=== PATIENT | male | born 1975 | race Caucasian/White ===

== ENCOUNTER 2016-09-29 16:00 | Outpatient (RCR) | payer MEDICAID ==
[~2016-09-29 16:00] MED LIST: ALEV220C2 PO; ATIV1TAB10 PO; MORP-39 PO; NORCOBULK PO; PANT40TA2 PO; motrin PO
== END 2016-10-10 ==
LOC: M OUTALCOH 16:00
PROVIDERS: ATTEND Psychiatry & Neurology Psychiatry
DX: F11.20 Opioid dependence, uncomplicated (principal)

== ENCOUNTER 2016-10-28 12:58 | Emergency (ER) | payer MEDICAID, OTHER ==
--- NOTE | 2016-10-28 14:52 | EDDOCDS ---
Physician Documentation [facility] Name: Ilan Coffman Age: 41 yrs Sex: Male : 1975 Arrival Date: 10/28/2016 Time: 12:58 Bed TR7 Private MD: Ron Manzano NCFM Disposition: 10/28/16 14:45 Discharged to Home/Self Care. Impression: Other acute postprocedural pain, Fusion of spine, lumbar region. - Condition is Stable. - Discharge Instructions: Musculoskeletal Pain, Lumbar Diskectomy, Care After. - Prescriptions for Percocet 5- 325 mg Oral Tablet - take 1 tablet by ORAL route every 6 hours As needed MDD: 4 tabs; 20 tablet. etodolac 200 mg Oral Capsule - take 1 capsule by ORAL route 3 times per day; 30 capsule. - Medication Reconciliation, Local Pharmacy Hours form. - Follow up: [facility] - office; When: Call to arrange an appointment; Reason: Further diagnostic work-up, Recheck today's complaints, Continuance of care. - Problem is an ongoing problem. - Symptoms are unchanged. Historical: - Allergies: no known allergies; - Home Meds: 1. Percocet 5-325 mg Oral tab 1 tab every 4 hours 1-2 tabs (Last dose: 10/28/2016 05:00) 2. Motrin 800 mg Oral tab twice a day (Last dose: 10/28/2016 05:00) 3. Aleve 220 mg Oral tab 2 tab every 12 hours (Last dose: 10/28/2016 05:00) 4. bupropion HCl 100 mg Oral tab 1 tab daily (Last dose: 10/28/2016 05:00) 5. cephalexin 500 mg Oral tab 1 tab every 6 hours - PMHx: Anxiety; - PSHx: Knee surgery- Left; back surgery; - Social history: Smoking status: Patient states was never smoker of tobacco. No barriers to communication noted, The patient speaks fluent Swedish, Speaks appropriately for age. - Family history: Not pertinent. - : The pt / caregiver states he / she is not on anticoagulants. Home medication list is obtained from the patient. - Exposure Risk Screening:: None identified. Vital Signs: 10/28 13:00 BP 142 / 83; Pulse 94; Resp 18 S; Temp 98.2(O); Pulse Ox 99% on R/A; Weight 90.72 kg / gr2 200 lbs (R); Height 5 ft. 11 in. (180.34 cm) (R); Pain 03/19; 13:00 Body Mass Index 27.89 (90.72 kg, 180.34 cm) gr2 MDM: 14:15 Financial registration complete. 14:36 [facility] Payment Agreement was scanned into [employer] and attached to record. Signatures: Valeria Alarcon, Reg Reg lg Titi Weston PA PA btw Fuller, Desiree,RN RN dsf The chart was reviewed and I authenticate all verbal orders and agree with the evaluation and treatment provided.Attachments: 14:36 [facility] Payment Agreement lg MTDD
--- NOTE | 2016-10-28 14:52 | EDDOCDS ---
Nurse's Notes [facility] Name: Ilan Coffman Age: 41 yrs Sex: Male : 1975 Arrival Date: 10/28/2016 Time: 12:58 Bed TR7 Private MD: Ron Manzano NCFM Diagnosis: Other acute postprocedural pain;Fusion of spine, lumbar region Presentation: 10/28 13:03 Presenting complaint: Patient states: Oct 13 had a spinal fusion done at [facility]. Pt states he ran out of his pain medication and the did not phone in another script in for him in time. Acute neurological deficits are not present. Mechanism of Injury: No Mechanism of Injury. Adult Sepsis Screening: The patient does not have new or worsening altered mentation. Patient's respiratory rate is less than 22. Systolic blood pressure is greater than 100. Patient has a qSOFA score of 0- Negative Sepsis Screen. Suicide/Homicide risk assessment- the patient denies having any suicidal and/or homicidal ideations and does not present with any other emotional, behavioral or mental health complaints. Status: Patient is not a manager support services or dependent. Transition of care: patient was not received from another setting of care. 13:03 Acuity: JOSE LUIS Level 5 dsf 13:03 Method Of Arrival: Walkin/Carried/Asstd f Triage Assessment: 13:03 General: Appears in no apparent distress, Behavior is appropriate for age, cooperative. dsf Pain: Location: low back Pain currently is 7 out of 10 on a pain scale. Quality of pain is described as sharp, shooting. HIV screening NA for this visit Offered previously. Musculoskeletal: Reports pain in low back. Historical: - Allergies: no known allergies; - Home Meds: 1. Percocet 5-325 mg Oral tab 1 tab every 4 hours 1-2 tabs (Last dose: 10/28/2016 05:00) 2. Motrin 800 mg Oral tab twice a day (Last dose: 10/28/2016 05:00) 3. Aleve 220 mg Oral tab 2 tab every 12 hours (Last dose: 10/28/2016 05:00) 4. bupropion HCl 100 mg Oral tab 1 tab daily (Last dose: 10/28/2016 05:00) 5. cephalexin 500 mg Oral tab 1 tab every 6 hours - PMHx: Anxiety; - PSHx: Knee surgery- Left; back surgery; - Social history: Smoking status: Patient states was never smoker of tobacco. No barriers to communication noted, The patient speaks fluent Maori, Speaks appropriately for age. - Family history: Not pertinent. - : The pt / caregiver states he / she is not on anticoagulants. Home medication list is obtained from the patient. - Exposure Risk Screening:: None identified. Screenin:49 Screening information is obtained from the patient. Fall risk: No risks identified. dsf Assistance ADL's: requires no assistance with activities of daily living. Abuse/DV Screen: The patient / caregiver reports he/she is: not in a situation that causes fear, pain or injury. Nutritional screening: No deficits noted. Advance Directives: Currently, there is no health care proxy. home support is adequate. Assessment: 14:49 Adult Sepsis Screening: The patient does not have new or worsening altered mentation. dsf Patient's respiratory rate is less than 22. Systolic blood pressure is greater than 100. Patient has a qSOFA score of 0- Negative Sepsis Screen. General: Appears in no apparent distress, Behavior is appropriate for age, cooperative. Pain: Location: back. Neurological: Level of Consciousness is awake, alert. Cardiovascular: Capillary refill < 3 seconds. Respiratory: Airway is patent Respiratory effort is even, unlabored, Respiratory pattern is regular, symmetrical. Derm: Skin is pink, warm & dry. Vital Signs: 13:00 BP 142 / 83; Pulse 94; Resp 18 S; Temp 98.2(O); Pulse Ox 99% on R/A; Weight 90.72 kg gr2 (R); Height 5 ft. 11 in. (180.34 cm) (R); Pain 7/10; 13:00 Body Mass Index 27.89 (90.72 kg, 180.34 cm) gr2 Vitals: 13:00 Log In Time: October 28, 2016 at 13:00. gr2 ED Course: 13:00 Patient visited by Vaishnavi Wolfe. gr2 13:00 Ron Manzano is Private Physician. gr2 13:00 Patient moved to Waiting gr2 13:01 Patient visited by Vaishnavi Wolfe. gr2 13:01 Patient moved to Pre RCE gr2 13:05 Triage Initiated dsf 13:22 Patient moved to Triage 1 ct3 13:24 Patient moved to Pre RCE kr3 14:02 Patient moved to Triage 1 ct3 14:12 Titi Weston PA is PHCP. btw 14:12 Danelle Zavala MD is Attending Physician. btw 14:12 Patient visited by Titi Weston PA. btw 14:35 Patient name changed from Luke\S\J\S\Kampnich\S\ to Luke\S\Maycol\S\Kampnich. EDMS 14:36 [facility] Payment Agreement was scanned into [employer] and attached to record. 14:45 [facility] - office is Referral Physician. btw 14:49 Patient moved to TR7 ct3 14:49 The patient / caregiver is instructed regarding the plan of care and ED course. dsf 14:49 No IV's were initiated during this patient's visit. No procedures done that require dsf assistance. Order Results: There are currently no results for this order. Outcome: 14:45 Discharge ordered by Provider. btw 14:49 Discharge Assessment: Patient awake, alert and oriented x 3. No cognitive and/or dsf functional deficits noted. Patient verbalized understanding of disposition instructions. patient administered narcotics - no. The following High Risk Discharge criteria are identified: None. Discharged to home ambulatory. Condition: stable. Discharge instructions given to patient, Instructed on discharge instructions, follow up and referral plans. medication usage, no driving heavy equipment, Demonstrated understanding of instructions, medications, Pt was receptive of discharge instructions/ teaching. Prescriptions given X 2. No special radiology studies were completed. Property sent home with patient. 14:51 Patient left the ED. dsf Signatures: [facility] Valeria Alarcon, Reg Reg lg Xuan Richardson,ESTEVAN RN kr3 Titi Weston PA PA btw Shantal Joshua, CONTROLS DESIGN ENGINEER CONTROLS DESIGN ENGINEER ct3 Diana Martinez RN RN dsf Vaishnavi Wolfe gr2 MTDD
--- NOTE | 2016-10-30 15:51 | EDDOCDS ---
Physician Documentation [facility] Name: Ilan Coffman Age: 41 yrs Sex: Male : 1975 Arrival Date: 10/28/2016 Time: 12:58 Bed TR7 Private MD: Ron Manzano NCFM Disposition: 10/28/16 14:45 Discharged to Home/Self Care. Impression: Other acute postprocedural pain, Fusion of spine, lumbar region. - Condition is Stable. - Discharge Instructions: Musculoskeletal Pain, Lumbar Diskectomy, Care After. - Prescriptions for Percocet 5- 325 mg Oral Tablet - take 1 tablet by ORAL route every 6 hours As needed MDD: 4 tabs; 20 tablet. etodolac 200 mg Oral Capsule - take 1 capsule by ORAL route 3 times per day; 30 capsule. - Medication Reconciliation, Local Pharmacy Hours form. - Follow up: [facility] - office; When: Call to arrange an appointment; Reason: Further diagnostic work-up, Recheck today's complaints, Continuance of care. - Problem is an ongoing problem. - Symptoms are unchanged. Historical: - Allergies: no known allergies; - Home Meds: 1. Percocet 5-325 mg Oral tab 1 tab every 4 hours 1-2 tabs (Last dose: 10/28/2016 05:00) 2. Motrin 800 mg Oral tab twice a day (Last dose: 10/28/2016 05:00) 3. Aleve 220 mg Oral tab 2 tab every 12 hours (Last dose: 10/28/2016 05:00) 4. bupropion HCl 100 mg Oral tab 1 tab daily (Last dose: 10/28/2016 05:00) 5. cephalexin 500 mg Oral tab 1 tab every 6 hours - PMHx: Anxiety; - PSHx: Knee surgery- Left; back surgery; - Social history: Smoking status: Patient states was never smoker of tobacco. No barriers to communication noted, The patient speaks fluent Mongolian, Speaks appropriately for age. - Family history: Not pertinent. - : The pt / caregiver states he / she is not on anticoagulants. Home medication list is obtained from the patient. - Exposure Risk Screening:: None identified. Vital Signs: 10/28 13:00 BP 142 / 83; Pulse 94; Resp 18 S; Temp 98.2(O); Pulse Ox 99% on R/A; Weight 90.72 kg / gr2 200 lbs (R); Height 5 ft. 11 in. (180.34 cm) (R); Pain 710; 13:00 Body Mass Index 27.89 (90.72 kg, 180.34 cm) gr2 MDM: 14:15 Financial registration complete. lg 14:36 [facility] Payment Agreement was scanned into [employer] and attached to record. lg 18:02 T-Sheet-- Draft Copy was scanned into [employer] and attached to record. klr 10/30 11:05 Other: DRUG UTILIZATION REPORT was scanned into [employer] and attached to record. gb Signatures: Lakshmi Aquino, Reg Reg gb Valeria Alarcon, Reg Reg lg Titi Weston PA PA btw Fuller, DesireeRN RN Alena Bowden The chart was reviewed and I authenticate all verbal orders and agree with the evaluation and treatment provided.Attachments: 10/28 14:36 [facility] Payment Agreement lg 18:02 T-Sheet-- Draft Copy klr Chart Complete MTDD
--- NOTE | 2016-10-30 15:51 | EDDOCDS ---
Nurse's Notes [facility] Name: Ilan Coffman Age: 41 yrs Sex: Male : 1975 Arrival Date: 10/28/2016 Time: 12:58 Bed TR7 Private MD: Ron Manzano NCFM Diagnosis: Other acute postprocedural pain;Fusion of spine, lumbar region Presentation: 10/28 13:03 Presenting complaint: Patient states: Oct 13 had a spinal fusion done at [facility]. Pt states he ran out of his pain medication and the did not phone in another script in for him in time. Acute neurological deficits are not present. Mechanism of Injury: No Mechanism of Injury. Adult Sepsis Screening: The patient does not have new or worsening altered mentation. Patient's respiratory rate is less than 22. Systolic blood pressure is greater than 100. Patient has a qSOFA score of 0- Negative Sepsis Screen. Suicide/Homicide risk assessment- the patient denies having any suicidal and/or homicidal ideations and does not present with any other emotional, behavioral or mental health complaints. Status: Patient is not a ancillary services manager or dependent. Transition of care: patient was not received from another setting of care. 13:03 Acuity: JOSE LUIS Level 5 dsf 13:03 Method Of Arrival: Walkin/Carried/Asstd f Triage Assessment: 13:03 General: Appears in no apparent distress, Behavior is appropriate for age, cooperative. dsf Pain: Location: low back Pain currently is 7 out of 10 on a pain scale. Quality of pain is described as sharp, shooting. HIV screening NA for this visit Offered previously. Musculoskeletal: Reports pain in low back. Historical: - Allergies: no known allergies; - Home Meds: 1. Percocet 5-325 mg Oral tab 1 tab every 4 hours 1-2 tabs (Last dose: 10/28/2016 05:00) 2. Motrin 800 mg Oral tab twice a day (Last dose: 10/28/2016 05:00) 3. Aleve 220 mg Oral tab 2 tab every 12 hours (Last dose: 10/28/2016 05:00) 4. bupropion HCl 100 mg Oral tab 1 tab daily (Last dose: 10/28/2016 05:00) 5. cephalexin 500 mg Oral tab 1 tab every 6 hours - PMHx: Anxiety; - PSHx: Knee surgery- Left; back surgery; - Social history: Smoking status: Patient states was never smoker of tobacco. No barriers to communication noted, The patient speaks fluent Turkmen, Speaks appropriately for age. - Family history: Not pertinent. - : The pt / caregiver states he / she is not on anticoagulants. Home medication list is obtained from the patient. - Exposure Risk Screening:: None identified. Screenin:49 Screening information is obtained from the patient. Fall risk: No risks identified. dsf Assistance ADL's: requires no assistance with activities of daily living. Abuse/DV Screen: The patient / caregiver reports he/she is: not in a situation that causes fear, pain or injury. Nutritional screening: No deficits noted. Advance Directives: Currently, there is no health care proxy. home support is adequate. Assessment: 14:49 Adult Sepsis Screening: The patient does not have new or worsening altered mentation. dsf Patient's respiratory rate is less than 22. Systolic blood pressure is greater than 100. Patient has a qSOFA score of 0- Negative Sepsis Screen. General: Appears in no apparent distress, Behavior is appropriate for age, cooperative. Pain: Location: back. Neurological: Level of Consciousness is awake, alert. Cardiovascular: Capillary refill < 3 seconds. Respiratory: Airway is patent Respiratory effort is even, unlabored, Respiratory pattern is regular, symmetrical. Derm: Skin is pink, warm & dry. Vital Signs: 13:00 BP 142 / 83; Pulse 94; Resp 18 S; Temp 98.2(O); Pulse Ox 99% on R/A; Weight 90.72 kg gr2 (R); Height 5 ft. 11 in. (180.34 cm) (R); Pain 7/10; 13:00 Body Mass Index 27.89 (90.72 kg, 180.34 cm) gr2 Vitals: 13:00 Log In Time: October 28, 2016 at 13:00. gr2 ED Course: 13:00 Patient visited by Vaishnavi Wolfe. gr2 13:00 Ron Manzano is Private Physician. gr2 13:00 Patient moved to Waiting gr2 13:01 Patient visited by Vaishnavi Wolfe. gr2 13:01 Patient moved to Pre RCE gr2 13:05 Triage Initiated dsf 13:22 Patient moved to Triage 1 ct3 13:24 Patient moved to Pre RCE kr3 14:02 Patient moved to Triage 1 ct3 14:12 Titi Weston PA is PHCP. btw 14:12 Danelle Zavala MD is Attending Physician. btw 14:12 Patient visited by Titi Weston PA. btw 14:35 Patient name changed from Luke\S\J\S\Kampnich\S\ to Luke\S\Maycol\S\Kampnich. EDMS 14:36 [facility] [place] Agreement was scanned into [employer] and attached to record. lg 14:45 [facility] - office is Referral Physician. btw 14:49 Patient moved to TR7 ct3 14:49 The patient / caregiver is instructed regarding the plan of care and ED course. dsf 14:49 No IV's were initiated during this patient's visit. No procedures done that require dsf assistance. 18:02 T-Sheet-- Draft Copy was scanned into [employer] and attached to record. klr 02 11:05 Other: DRUG UTILIZATION REPORT was scanned into [employer] and attached to record. gb Order Results: There are currently no results for this order. Outcome: 0218 14:45 Discharge ordered by Provider. btw 14:49 Discharge Assessment: Patient awake, alert and oriented x 3. No cognitive and/or dsf functional deficits noted. Patient verbalized understanding of disposition instructions. patient administered narcotics - no. The following High Risk Discharge criteria are identified: None. Discharged to home ambulatory. Condition: stable. Discharge instructions given to patient, Instructed on discharge instructions, follow up and referral plans. medication usage, no driving heavy equipment, Demonstrated understanding of instructions, medications, Pt was receptive of discharge instructions/ teaching. Prescriptions given X 2. No special radiology studies were completed. Property sent home with patient. 14:51 Patient left the ED. dsf Signatures: Dispatcher [employer] EDMS Lakshmi Aquino, Reg Reg gb Valeria Alarcon, Reg Reg lg Xuan Richardson RN RN kr3 Titi Weston PA PA btw Joshua, Shantal, SPRAY GUN REPAIRER SPRAY GUN REPAIRER ct3 Diana Martinez RN RN dsf Vaishnavi Wolfe gr2 Alena Lee Chart Complete MTDD
--- NOTE | 2016-10-30 15:51 | EDDOCDS ---
Physician Documentation [facility] Name: Ilan Coffman Age: 41 yrs Sex: Male : 1975 Arrival Date: 10/28/2016 Time: 12:58 Bed TR7 Private MD: Ron Manzano NCFM Disposition: 10/28/16 14:45 Discharged to Home/Self Care. Impression: Other acute postprocedural pain, Fusion of spine, lumbar region. - Condition is Stable. - Discharge Instructions: Musculoskeletal Pain, Lumbar Diskectomy, Care After. - Prescriptions for Percocet 5- 325 mg Oral Tablet - take 1 tablet by ORAL route every 6 hours As needed MDD: 4 tabs; 20 tablet. etodolac 200 mg Oral Capsule - take 1 capsule by ORAL route 3 times per day; 30 capsule. - Medication Reconciliation, Local Pharmacy Hours form. - Follow up: [facility] - office; When: Call to arrange an appointment; Reason: Further diagnostic work-up, Recheck today's complaints, Continuance of care. - Problem is an ongoing problem. - Symptoms are unchanged. Historical: - Allergies: no known allergies; - Home Meds: 1. Percocet 5-325 mg Oral tab 1 tab every 4 hours 1-2 tabs (Last dose: 10/28/2016 05:00) 2. Motrin 800 mg Oral tab twice a day (Last dose: 10/28/2016 05:00) 3. Aleve 220 mg Oral tab 2 tab every 12 hours (Last dose: 10/28/2016 05:00) 4. bupropion HCl 100 mg Oral tab 1 tab daily (Last dose: 10/28/2016 05:00) 5. cephalexin 500 mg Oral tab 1 tab every 6 hours - PMHx: Anxiety; - PSHx: Knee surgery- Left; back surgery; - Social history: Smoking status: Patient states was never smoker of tobacco. No barriers to communication noted, The patient speaks fluent Faroese, Speaks appropriately for age. - Family history: Not pertinent. - : The pt / caregiver states he / she is not on anticoagulants. Home medication list is obtained from the patient. - Exposure Risk Screening:: None identified. Vital Signs: 10/28 13:00 BP 142 / 83; Pulse 94; Resp 18 S; Temp 98.2(O); Pulse Ox 99% on R/A; Weight 90.72 kg / gr2 200 lbs (R); Height 5 ft. 11 in. (180.34 cm) (R); Pain 710; 13:00 Body Mass Index 27.89 (90.72 kg, 180.34 cm) gr2 MDM: 14:15 Financial registration complete. lg 14:36 [facility] Payment Agreement was scanned into [employer] and attached to record. lg 18:02 T-Sheet-- Draft Copy was scanned into [employer] and attached to record. klr 10/30 11:05 Other: DRUG UTILIZATION REPORT was scanned into [employer] and attached to record. gb Signatures: Lakshmi Aquino, Reg Reg gb Valeria Alarcon, Reg Reg lg Titi Weston PA PA btw Fuller, DesireeRN RN Alena Bowden The chart was reviewed and I authenticate all verbal orders and agree with the evaluation and treatment provided.Attachments: 10/28 14:36 [facility] Payment Agreement lg 18:02 T-Sheet-- Draft Copy klr Chart Complete MTDD
== END 2016-10-28 14:51 | disposition home or self-care (01) ==
LOC: M ED 12:58
DX: M54.5 Low back pain (principal); Z98.890 Other specified postprocedural states; Z98.1 Arthrodesis status; F41.9 Anxiety disorder, unspecified; Z79.899 Other long term (current) drug therapy

== ENCOUNTER 2016-11-06 16:00 | Outpatient (RCR) | payer MEDICAID | END 2016-11-07 | LOC: M OUTALCOH 16:00 | PROVIDERS: ATTEND Psychiatry & Neurology Psychiatry | DX: F11.20 Opioid dependence, uncomplicated (principal) ==

== ENCOUNTER 2016-12-06 16:00 | Outpatient (RCR) | payer OTHER | END 2016-12-08 | LOC: M OUTALCOH 16:00 | PROVIDERS: ATTEND Psychiatry & Neurology Psychiatry | DX: F11.20 Opioid dependence, uncomplicated (principal) ==

== ENCOUNTER 2016-12-14 13:13 | Outpatient (RCR) | payer OTHER | END 2017-01-07 | LOC: M OUTALCOH 13:13 | PROVIDERS: ATTEND Psychiatry & Neurology Psychiatry | DX: F11.20 Opioid dependence, uncomplicated (principal) ==

== ENCOUNTER 2017-01-31 08:00 | Outpatient (RCR) | payer MEDICAID | END 2017-02-07 | LOC: M OUTALCOH 08:00 | PROVIDERS: ATTEND Psychiatry & Neurology Psychiatry | DX: F11.20 Opioid dependence, uncomplicated (principal) ==

== ENCOUNTER 2017-02-28 11:53 | Outpatient (RCR) | payer OTHER, SELFPAY | END 2017-03-09 | LOC: M OUTALCOH 11:53 | PROVIDERS: ATTEND Psychiatry & Neurology Psychiatry | DX: F11.20 Opioid dependence, uncomplicated (principal) ==

== ENCOUNTER 2017-03-28 15:00 | Outpatient (RCR) | payer MEDICAID, SELFPAY | END 2017-04-09 | LOC: M OUTALCOH 15:00 | PROVIDERS: ATTEND Psychiatry & Neurology Psychiatry | DX: F11.20 Opioid dependence, uncomplicated (principal) ==

== ENCOUNTER 2017-04-25 16:00 | Outpatient (RCR) | payer MEDICAID, SELFPAY | END 2017-05-10 | LOC: M OUTALCOH 16:00 | PROVIDERS: ATTEND Psychiatry & Neurology Psychiatry | DX: F11.20 Opioid dependence, uncomplicated (principal) ==

== ENCOUNTER 2017-05-23 15:14 | Outpatient (RCR) | payer MEDICAID | END 2017-06-09 | LOC: M OUTALCOH 15:14 | PROVIDERS: ATTEND Psychiatry & Neurology Psychiatry | DX: F11.20 Opioid dependence, uncomplicated (principal) ==

== ENCOUNTER 2017-07-18 15:00 | Outpatient (RCR) | payer MEDICAID ==
[2017-08-04] MEDS ORDERED: PERC5TAB12 PO (10:29)
[2017-08-04] MEDS ORDERED: BACL1TAB9 PO (10:29)
== END 2017-08-09 ==
LOC: M OUTALCOH 15:00
PROVIDERS: ATTEND Psychiatry & Neurology Psychiatry
DX: F11.20 Opioid dependence, uncomplicated (principal)

== ENCOUNTER 2017-08-04 09:19 | Emergency (ER) | payer MEDICAID, OTHER ==
[~2017-08-04] VITALS: Ht 180.3 cm; Wt 89.6 kg
[2017-08-04] MEDS ORDERED: PERCOCET 5MG/325MG TAB PO ONE (09:45)
[2017-08-04] MEDS ORDERED: BACLOFEN 10 MG TAB PO ONE (09:45)
[2017-08-04] MEDS ORDERED: BACL1TAB9 PO (10:29)
[2017-08-04] MEDS ORDERED: PERC5TAB12 PO (10:29)
[2017-08-04 10:58] VITALS: BP 144/81
== END 2017-08-04 10:58 | disposition home or self-care (01) ==
LOC: M ED 09:19
DX: S39.012A Strain of muscle, fascia and tendon of lower back, initial encounter (principal); X50.9XXA Other and unspecified overexertion or strenuous movements or postures, initial encounter; Y92.89 Other specified places as the place of occurrence of the external cause; Y93.89 Activity, other specified; Y99.8 Other external cause status; Z98.1 Arthrodesis status

== ENCOUNTER 2017-08-15 15:00 | Outpatient (RCR) | payer MEDICAID | END 2017-09-09 | LOC: M OUTALCOH 15:00 | DX: F11.20 Opioid dependence, uncomplicated (principal) ==

== ENCOUNTER 2017-08-25 15:21 | Emergency (ER) | payer MEDICAID, OTHER, SELFPAY ==
[~2017-08-25] VITALS: Ht 180.3 cm; Wt 86.4 kg
[~2017-08-25 15:21] MED LIST changes: +BACL1TAB9 PO; +PERC5TAB12 PO
[2017-08-25 15:22] VITALS: BP 140/84
[2017-08-25] MEDS ORDERED: METH4PACK (15:28)
[2017-08-25] MEDS ORDERED: ROBA500T (15:28)
[2017-08-25] MEDS ORDERED: PANT40TA2 (15:28)
[2017-08-25] MEDS ORDERED: PERC5TAB12 PO (16:12)
[2017-08-25] MEDS ORDERED: PERCOCET 5MG/325MG TAB PO ONE (16:15)
[2017-08-25] MEDS ORDERED: BACLOFEN 10 MG TAB PO ONE (16:15)
[2017-08-25] MEDS ORDERED: BACL1TAB9 PO (16:43)
== END 2017-08-25 19:56 | disposition home or self-care (01) ==
LOC: M ED 19:51
DX: S39.002A Unspecified injury of muscle, fascia and tendon of lower back, initial encounter (principal); X58.XXXA Exposure to other specified factors, initial encounter; Y92.89 Other specified places as the place of occurrence of the external cause; Y93.89 Activity, other specified; Y99.8 Other external cause status; Z98.1 Arthrodesis status; K21.9 Gastro-esophageal reflux disease without esophagitis; Z91.030 Bee allergy status; Z87.891 Personal history of nicotine dependence

== ENCOUNTER → 2017-08-31 | Outpatient (CLI) | payer OTHER | LOC: M PAIN 11:30 | DX: M96.1 Postlaminectomy syndrome, not elsewhere classified (principal); M79.1 Myalgia; K21.9 Gastro-esophageal reflux disease without esophagitis; Z91.030 Bee allergy status; Z79.1 Long term (current) use of non-steroidal anti-inflammatories (NSAID); Z79.899 Other long term (current) drug therapy; Z87.891 Personal history of nicotine dependence | CPT/HCPCS: G0463 ==

== ENCOUNTER → 2017-09-05 | Outpatient (CLI) | payer OTHER ==
[2017-09-13 00:06] LABS: OXYCODONE SCREEN ++POSITIVE++ ng/mL (Cutoff:5); Oxycodones Confirmation Positive (.)
== END ==
LOC: M LAB 17:20
DX: F11.20 Opioid dependence, uncomplicated (principal)
CPT/HCPCS: 36415

== ENCOUNTER 2017-09-17 10:32 | Outpatient (RCR) | payer MEDICAID | END 2017-10-10 | LOC: M OUTALCOH 10-02 08:00 | DX: F11.20 Opioid dependence, uncomplicated (principal) ==

== ENCOUNTER 2017-10-11 15:37 | Outpatient (RCR) | payer MEDICAID | END 2017-11-07 | LOC: M OUTALCOH 15:37 | DX: F11.20 Opioid dependence, uncomplicated (principal) ==

== ENCOUNTER → 2017-10-15 | Outpatient (REF) | payer MEDICAID ==
[2017-10-15 12:45] LABS: HEMATOCRIT 40.5 % (42.0-52.0); HEMOGLOBIN 13.5 g/dl (14.0-18.0); MEAN CORPUSCULAR HEMOGLOBIN 28.7 pg (27.0-33.0); MEAN CORPUSCULAR HGB CONC 33.3 g/dl (32.0-36.5); MEAN CORPUSCULAR VOLUME 86.2 fl (80.0-96.0); PLATELET COUNT, AUTOMATED 309 10^3/uL (150-450); RED CELL DISTRIBUTION WIDTH 13.3 % (11.5-14.5); WHITE BLOOD COUNT 6.1 10^3/uL (4.0-10.0)
[2017-10-15 13:13] LABS: TOTAL 25(OH) VITAMIN D 23.2 NG/ML (30.0-100.0)
[2017-10-15 13:14] LABS: TESTOSTERONE 307 NG/DL (241-827); TOTAL T3 87.1 NG/DL (60.0-181.0)
[2017-10-15 13:16] LABS: ALBUMIN 4.5 GM/DL (3.2-5.2); ALBUMIN/GLOBULIN RATIO 1.45 (1.00-1.93); ALKALINE PHOSPHATASE 69 U/L (45-117); ALT/SGPT 38 U/L (12-78); ANION GAP 5 MEQ/L (8-16); AST/SGOT 20 U/L (7-37); BILIRUBIN,TOTAL 0.3 MG/DL (0.2-1.0); BLOOD UREA NITROGEN 19 MG/DL (7-18); CALCIUM LEVEL 9.1 MG/DL (8.5-10.1); CARBON DIOXIDE LEVEL 29 MEQ/L (21-32); CHLORIDE LEVEL 106 MEQ/L (98-107); CHOLESTEROL LEVEL 188 MG/DL (<200); CHOLESTEROL RISK RATIO 3.357 (<5); CREATININE FOR GFR 0.91 MG/DL (0.70-1.30); GLOMERULAR FILTRATION RATE > 60.0 (>60); GLUCOSE, FASTING 150 MG/DL (70-100); HDL CHOLESTEROL 56 MG/DL (>40); LDL CHOLESTEROL 112.4 MG/DL (<100); NON-HDL-C 132 MG/DL; POTASSIUM SERUM 4.4 MEQ/L (3.5-5.1); SODIUM LEVEL 140 MEQ/L (136-145); TOTAL PROTEIN 7.6 GM/DL (6.4-8.2); TRIGLYCERIDES LEVEL 98 MG/DL (<150)
[2017-10-15 13:42] LABS: ESTIMATED AVERAGE GLUCOSE 120 MG/DL (60-110); HEMOGLOBIN A1c 5.8 %
== END ==
LOC: M LABDRAW1 11:49
DX: R10.9 Unspecified abdominal pain (principal); R53.83 Other fatigue

== ENCOUNTER → 2017-10-15 | Outpatient (REF) | payer MEDICAID ==
[2017-10-18 14:11] LABS: OXYCODONE SCREEN Negative ng/mL (Cutoff:5)
== END ==
LOC: M OUTALCOH 11:38 → M LABDRAW1 11:39
DX: F11.20 Opioid dependence, uncomplicated (principal)

== ENCOUNTER → 2017-10-17 | Outpatient (CLI) | payer OTHER | LOC: M PAIN 15:45 | DX: G89.29 Other chronic pain (principal); M96.1 Postlaminectomy syndrome, not elsewhere classified; M79.1 Myalgia; K21.9 Gastro-esophageal reflux disease without esophagitis; Z79.899 Other long term (current) drug therapy; Z91.030 Bee allergy status; Z87.891 Personal history of nicotine dependence | CPT/HCPCS: G0463 ==

== ENCOUNTER → 2017-10-18 | Outpatient (REF) | payer OTHER ==
[2017-10-21 08:06] LABS: OXYCODONE SCREEN Negative ng/mL (Cutoff:5)
== END ==
LOC: M LABDRAW1 12:18
DX: F11.20 Opioid dependence, uncomplicated (principal)
CPT/HCPCS: 36415

== ENCOUNTER → 2017-10-19 | Outpatient (CLI) | payer OTHER ==
[~2017-10-19] MED LIST changes: -ALEV220C2 PO; -ATIV1TAB10 PO; -BACL1TAB9 PO; +BUPIVACAINE HCL 0.25% 10 ML VIAL As Ordered; +BUPIVACAINE HCL 0.25% 30 ML VIAL As Ordered; -MORP-39 PO; -NORCOBULK PO; -PANT40TA2 PO; -PERC5TAB12 PO; +TRIAMCINOLONE ACETONIDE SUSP 40 MG/ML VIAL (J3301) As Ordered; +diazePAM 5 MG TAB As Ordered; -motrin PO; +oxyCODONE 5MG TAB As Ordered
== END ==
LOC: M PAIN 11:00
DX: G89.29 Other chronic pain (principal); M54.5 Low back pain; M79.1 Myalgia; K21.9 Gastro-esophageal reflux disease without esophagitis; Z79.899 Other long term (current) drug therapy; Z91.030 Bee allergy status; Z87.891 Personal history of nicotine dependence
CPT/HCPCS: J3301

== ENCOUNTER → 2017-10-26 | Outpatient (REF) | payer MEDICAID, OTHER | LOC: M LABDRAW1 15:38 | DX: F11.20 Opioid dependence, uncomplicated (principal) ==

== ENCOUNTER 2017-11-12 15:00 | Outpatient (RCR) | payer MEDICAID | END 2017-12-08 | LOC: M OUTALCOH 11-14 16:00 | DX: F11.20 Opioid dependence, uncomplicated (principal) ==

== ENCOUNTER → 2017-12-03 | Outpatient (REF) | payer MEDICAID ==
[2017-12-06 14:14] LABS: OXYCODONE SCREEN Negative ng/mL (Cutoff:5)
== END ==
LOC: M LABDRAW1 15:36
DX: F11.20 Opioid dependence, uncomplicated (principal)

== ENCOUNTER 2017-12-10 10:02 | Outpatient (RCR) | payer MEDICAID | END 2018-01-07 | LOC: M OUTALCOH 12-13 16:00 | DX: F11.20 Opioid dependence, uncomplicated (principal) ==

== ENCOUNTER → 2017-12-11 | Outpatient (REF) | payer MEDICAID | LOC: M LABDRAW1 16:06 | DX: F11.20 Opioid dependence, uncomplicated (principal) | CPT/HCPCS: 36415 ==

== ENCOUNTER 2018-01-09 15:41 | Outpatient (RCR) | payer MEDICAID | END 2018-02-07 | LOC: M OUTALCOH 15:41 | DX: F11.20 Opioid dependence, uncomplicated (principal) ==

== ENCOUNTER → 2018-01-10 | Outpatient (REF) | payer MEDICAID ==
[2018-01-14 00:08] LABS: ACETAMINOPHEN None Detected ug/mL (10-30); ACETONE Negative % (0.000-0.010); AMITRIPTYLINE None Detected (Not Estab.); BUTALBITAL None Detected ug/mL (1-10); CHLORDIAZEPOXIDE None Detected ug/mL (0.1-0.9); DESIPRAMINE None Detected (Not Estab.); DIAZEPAM None Detected ug/mL (0.1-0.9); DOXEPIN None Detected (Not Estab.); ETHANOL Negative % (0.000-0.010); IMIPRAMINE None Detected (Not Estab.); ISOPROPANOL Negative % (0.000-0.010); METHANOL Negative % (0.000-0.010); NORCHLORDIAZEPOXIDE None Detected ug/mL (0.1-0.6); NORDIAZEPAM None Detected ug/mL (0.1-1.4); NORDOXEPIN None Detected (Not Estab.); NORTRIPTYLINE None Detected ng/mL (50-150); PENTOBARBITAL None Detected ug/mL (1-5); PHENOBARBITAL None Detected ug/mL (15-40); PHENYTOIN None Detected ug/mL (10.0-20.0); SALICYLATE None Detected ug/mL (30-250)
== END ==
LOC: M LABDRAW1 12:24
DX: F11.20 Opioid dependence, uncomplicated (principal)
CPT/HCPCS: 84600

== ENCOUNTER 2018-03-04 13:05 | Outpatient (RCR) | payer MEDICAID | END 2018-03-09 | LOC: M OUTALCOH 13:05 | DX: F11.20 Opioid dependence, uncomplicated (principal) ==

== ENCOUNTER 2018-03-26 16:29 | Outpatient (RCR) | payer MEDICAID | END 2018-04-09 | LOC: M OUTALCOH 16:29 | DX: F11.20 Opioid dependence, uncomplicated (principal) ==

== ENCOUNTER 2018-05-15 11:18 | Outpatient (RCR) | payer MEDICAID | END 2018-06-09 | LOC: M OUTALCOH 06-05 15:00 | DX: F11.20 Opioid dependence, uncomplicated (principal) ==

== ENCOUNTER → 2018-05-17 | Outpatient (REF) | payer MEDICAID ==
[2018-05-22 00:07] LABS: OXYCODONE SCREEN Negative ng/mL (Cutoff:5)
== END ==
LOC: M OUTALCOH 11:28
DX: F11.20 Opioid dependence, uncomplicated (principal)
CPT/HCPCS: 36415

== ENCOUNTER → 2018-05-20 | Outpatient (CLI) | payer SELFPAY, OTHER, MEDICAID ==
[2018-05-24 08:06] LABS: OXYCODONE SCREEN Negative ng/mL (Cutoff:5)
== END ==
LOC: M LAB 17:46
DX: F11.20 Opioid dependence, uncomplicated (principal)
CPT/HCPCS: 36415

== ENCOUNTER → 2019-05-26 | Outpatient (REF) | payer MEDICAID ==
[~2019-05-26] MED LIST changes: +ALEV220C2 PO; +ATIV1TAB10 PO; +BACL1TAB9 PO; -BUPIVACAINE HCL 0.25% 10 ML VIAL As Ordered; -BUPIVACAINE HCL 0.25% 30 ML VIAL As Ordered; +METH4PACK; +MORP-39 PO; +NORCOBULK PO; +PANT40TA2 PO; +PANT40TA3; +PERC5TAB12 PO; +ROBA500T; -TRIAMCINOLONE ACETONIDE SUSP 40 MG/ML VIAL (J3301) As Ordered; -diazePAM 5 MG TAB As Ordered; +motrin PO; -oxyCODONE 5MG TAB As Ordered
== END ==
LOC: M LABDRAW1 18:10
PROVIDERS: ATTEND Psychiatry & Neurology Psychiatry
DX: Z03.89 Encounter for observation for other suspected diseases and conditions ruled out (principal)

== ENCOUNTER → 2019-05-26 | Outpatient (CLI) | payer MEDICAID ==
[~2019-05-26] MED LIST changes: +BUPR15TASR PO; +FLUO20CA19 PO; +MOBI4TAB PO; +NORC1TAB7 PO; -PANT40TA3; +PANT40TA3 PO
== END ==
LOC: M OUTALCOH 09:11
PROVIDERS: ATTEND Psychiatry & Neurology Psychiatry
DX: Z03.89 Encounter for observation for other suspected diseases and conditions ruled out (principal)

== ENCOUNTER 2019-06-02 14:35 | Outpatient (RCR) | payer MEDICAID ==
[~2019-06-02 14:35] MED LIST changes: -BUPR15TASR PO; -FLUO20CA19 PO; -MOBI4TAB PO; -NORC1TAB7 PO; +PANT40TA3; -PANT40TA3 PO
== END 2019-06-09 ==
LOC: M OUTALCOH 14:35
PROVIDERS: ATTEND Psychiatry & Neurology Psychiatry
DX: F11.20 Opioid dependence, uncomplicated (principal); F17.200 Nicotine dependence, unspecified, uncomplicated

== ENCOUNTER 2019-07-07 09:22 | Outpatient (RCR) | payer MEDICAID | END 2019-07-10 | LOC: M OUTALCOH 09:22 | PROVIDERS: ATTEND Psychiatry & Neurology Psychiatry | DX: F17.200 Nicotine dependence, unspecified, uncomplicated (principal); F11.20 Opioid dependence, uncomplicated ==

== ENCOUNTER → 2019-08-03 | Outpatient (CLI) | payer MEDICAID ==
[~2019-08-03] MED LIST changes: +BUPR15TASR PO; +FLUO20CA19 PO; +MOBI4TAB PO; +NORC1TAB7 PO; -PANT40TA3; +PANT40TA3 PO
[2019-08-03 13:33] LABS: BLOOD UREA NITROGEN 18 MG/DL (7-18); CALCIUM LEVEL 8.5 MG/DL (8.5-10.1); CARBON DIOXIDE LEVEL 30 MEQ/L (21-32); CHLORIDE LEVEL 106 MEQ/L (98-107); GLOMERULAR FILTRATION RATE > 60.0 (>60); GLUCOSE, FASTING 95 MG/DL (70-100); POTASSIUM SERUM 3.9 MEQ/L (3.5-5.1); SODIUM LEVEL 142 MEQ/L (136-145)
--- NOTE | 2019-08-03 16:27 | ECGEPIP ---
[facility] Test Date: 2019-08-03 Pat Name: MARY EVERETT Department: Room: - Gender: Male Campus Administrative Assistant: DOUGLAS : 1975 Requested By: Zeke Bernardo Order Number: [id number] Reading MD: Indio Clemente Measurements Intervals [place] Rate: 74 P: 72 OR: 170 QRS: 78 QRSD: 98 T: 64 QT: 376 QTc: 418 Interpretive Statements SINUS RHYTHM Within normal limits. No prior ECG available for comparison at the time of interpretation. Electronically Signed on 08-03-2019 16:27:10 EST by Indio Clemente
== END ==
LOC: M LAB 12:17
PROVIDERS: ATTEND Anesthesiology
DX: E11.9 Type 2 diabetes mellitus without complications (principal)

== ENCOUNTER 2019-08-05 13:57 | Day surgery (SDC) | payer MEDICAID ==
[~2019-08-05] VITALS: Ht 177.8 cm; Wt 74.4 kg
[~2019-08-05 13:57] MED LIST changes: +LR 1,000 ML IV ONE; -NORC1TAB7 PO
[2019-08-05] MEDS ORDERED: LIDOCAINE 2% INJ 100 MG/5 ML SDV (FOR ANES.) As Ordered ONE (15:29)
[2019-08-05] MEDS ORDERED: ROCURONIUM BROMIDE 50 MG/5 ML VIAL As Ordered ONE ×2 (15:29→19:17)
[2019-08-05] MEDS ORDERED: MIDAZOLAM INJ 2 MG/2 ML VIAL (J2250) As Ordered ONE ×2 (15:29→16:02)
[2019-08-05] MEDS ORDERED: fentaNYL 250 MCG/5 ML INJECTION (J3010) As Ordered ONE (15:29)
[2019-08-05] MEDS ORDERED: PROPOFOL 200 MG/20 ML VIAL As Ordered ONE (15:29)
[2019-08-05] MEDS ORDERED: MIDAZOLAM INJ 2 MG/2 ML VIAL (J2250) IV ONE (16:15)
[2019-08-05] MEDS ORDERED: BUPIVACAINE HCL 0.25% 30 ML VIAL As Ordered ONE (18:04)
[2019-08-05] MEDS ORDERED: NORC1TAB7 PO (18:30)
[2019-08-05] MEDS ORDERED: dexameTHASONE 4 MG/ML 1ML VIAL (J1100) As Ordered ONE (18:46)
[2019-08-05] MEDS ORDERED: ONDANSETRON 4MG/2ML VIAL (J2405) As Ordered ONE ×2 (19:13→21:23)
[2019-08-05] MEDS ORDERED: KETOROLAC 60 MG/2 ML VIAL (J1885) As Ordered ONE (19:13)
[2019-08-05] MEDS ORDERED: ACETAMINOPHEN 1000MG 100ML IV BTL (OFIRMEV) (J0131 PER 10MG) As Ordered ONE (19:13)
[2019-08-05] MEDS ORDERED: NEOSTIGMINE 10 MG/10 ML VIAL (J2710) As Ordered ONE (19:19)
[2019-08-05] MEDS ORDERED: GLYCOPYRROLATE INJ 0.2 MG/ML 2 ML VIAL As Ordered ONE (19:19)
[2019-08-05] MEDS ORDERED: PERCOCET 5MG/325MG TAB As Ordered ONE (21:23)
[2019-08-05] MEDS ORDERED: fentaNYL 100 MCG/2 ML INJECTION (J3010) As Ordered ONE (21:23)
[2019-08-05] MEDS ORDERED: METOCLOPRAMIDE INJ 10MG/2ML VIAL (J2765) As Ordered ONE (21:24)
[2019-08-05] MEDS: fentaNYL 100 MCG/2 ML INJECTION (J3010) IV PRN ×4 (21:30→21:45)
[2019-08-05] MEDS: PERCOCET 5MG/325MG TAB PO PRN ×2 (21:30→22:01)
[2019-08-05] MEDS ORDERED: LR 1,000 ML IV SCH (21:30)
[2019-08-05] MEDS ORDERED: ONDANSETRON 4MG/2ML VIAL (J2405) IV PRN (21:30)
[2019-08-05] MEDS ORDERED: METOCLOPRAMIDE INJ 10MG/2ML VIAL (J2765) IV PRN (21:30)
[2019-08-05] MEDS ORDERED: IBUPROFEN 600 MG TAB PO PRN (22:00)
[2019-08-05] MEDS ORDERED: NORCO, ANEXSIA 5/325MG TABLET (HYDROcodone/ACETAMINOPHEN) PO PRN (22:00)
[2019-08-05] MEDS ORDERED: ACETAMINOPHEN TAB 650MG DOSE (2X325MG) PO PRN (22:00)
[2019-08-05 23:00] VITALS: BP 119/58
--- NOTE | 2019-08-10 07:51 | RO ---
DATE OF PROCEDURE: 08/05/2019 PREOPERATIVE DIAGNOSIS: Left inguinal hernia. POSTOPERATIVE DIAGNOSIS: PROCEDURE PERFORMED: A robotic-assisted laparoscopic left inguinal hernia repair with mesh. The mesh utilized was a Bard 3DMax Light Large left-sided Mesh. This was reference code [id number] and lot number [id number]. SURGEON: Dr. Parks ANESTHESIA: General. INDICATIONS FOR THE PROCEDURE: Patient is a 44-year-old man who noticed a bulge in the left inguinal area. He is now for a robotic-assisted laparoscopic left inguinal herniorrhaphy. OPERATIVE PROCEDURE: The patient was brought to the operating room and placed supine on the operating table. He was placed under general endotracheal anesthesia. The patient's abdomen was prepped and draped in a sterile fashion. Initial incision was in the upper midline. Local anesthesia was achieved with 0.25% Marcaine at the trocar sites. A short transverse incision was made 3-4 cm above the umbilicus. A Veress needle was inserted and after positive hanging drop test the abdomen was insufflated with carbon dioxide gas. An 8 mm robotic port was placed over a 5 mm scope and advanced through the abdominal wall without difficulty. Initial examination showed normal liver and gallbladder. Visualized portions of the bowel were normal. The patient was noted to have a definite left inguinal hernia opening. This was clearly medial to the inferior epigastric vessels consistent with a direct hernia. There was no evidence of hernia on the right. Two additional 8 mm robotic ports were placed in the left upper quadrant and right upper quadrant at the same level as that is the camera port. The patient cart was brought into position and the endoscope port was docked. Targeting took place and the additional arms were then docked to the existing trocars. The patient was tilted to a Trendelenburg position slightly prior to docking the robot. I then moved to the control console. Using a forced bipolar grasper and a pair of cauterizing scissors. A peritoneal flap was developed beginning at the medial umbilical fold and extending laterally to the anterior superior iliac spine. The flap was elevated using a combination of sharp and cautery dissection. The inferior epigastric vessels were clearly identified and preserved. As the flap was developed the hernia sac was inverted into the abdomen intact. The patient clearly had a moderately large direct hernia. A space was created for the placement of preperitoneal mesh. I elected to close the hernia defect prior to placing the mesh. This was accomplished using a 2-0 V-Loc suture which was begun medially and carried out laterally to narrow the internal ring about the spermatic cord structures. The wound was inspected for hemostasis with the Bard 3DMax Light Large Mesh for the left-hand side was inserted and placed over the inguinal floor. A 2-0 Vic[address] was used to place a tacking suture at the medial extent of the mesh suturing this to the area of Barrington's ligament. A second suture was placed at the upper outer extent of the mesh tacking this to the overlying fibrous tissue. The peritoneal flap was then closed using a running suture of 2-0 V-Loc. On completing the closure the patient was returned to a flat position. The patient tolerated the procedure well without apparent complication. The robot was undocked and removed. The abdomen was deflated and the trocars were removed. The skin incisions were closed with buried 4-0 Vicryl sutures. Steri-Strips were applied followed by light dressings. The patient was awakened in the operating room, extubated and moved to the recovery room in stable condition.
== END 2019-08-05 23:05 | disposition home or self-care (01) ==
LOC: M SDC 13:57
PROVIDERS: ATTEND Surgery
DX: K40.90 Unilateral inguinal hernia, without obstruction or gangrene, not specified as recurrent (principal); E11.9 Type 2 diabetes mellitus without complications; F41.9 Anxiety disorder, unspecified; F32.9 Major depressive disorder, single episode, unspecified; K21.9 Gastro-esophageal reflux disease without esophagitis; K25.9 Gastric ulcer, unspecified as acute or chronic, without hemorrhage or perforation; M12.9 Arthropathy, unspecified; M54.5 Low back pain; F17.220 Nicotine dependence, chewing tobacco, uncomplicated; Z91.030 Bee allergy status; Z79.899 Other long term (current) drug therapy; Z98.1 Arthrodesis status

== ENCOUNTER 2019-08-11 16:00 | Outpatient (RCR) | payer MEDICAID ==
[~2019-08-11 16:00] MED LIST changes: -LR 1,000 ML IV ONE; +NORC1TAB7 PO
== END 2019-09-09 ==
LOC: M OUTALCOH 16:00
PROVIDERS: ATTEND Psychiatry & Neurology Psychiatry
DX: F11.20 Opioid dependence, uncomplicated (principal); F17.200 Nicotine dependence, unspecified, uncomplicated

== ENCOUNTER 2019-09-22 15:52 | Outpatient (RCR) | payer MEDICAID | END 2019-10-10 | LOC: M OUTALCOH 15:52 | PROVIDERS: ATTEND Psychiatry & Neurology Psychiatry | DX: F11.20 Opioid dependence, uncomplicated (principal); F17.200 Nicotine dependence, unspecified, uncomplicated ==

== ENCOUNTER → 2019-11-14 | Outpatient (CLI) | payer MEDICAID, SELFPAY ==
[~2019-11-14] MED LIST changes: -FLUO20CA19 PO; +FLUO20CA22 PO
--- NOTE | 2019-11-20 04:16 | ECWPNPC ---
PATIENT NAME: MARY EVERETT : 1975 GENDER: MALE VISIT DATE: 11/14/2019 DISCHARGE DATE: 11/14/19 1527 VISIT LOCKED DATE TIME: PHYSICIAN: DENNIS HEALY MD RESOURCE: DENNIS HEALY MD REASON FOR APPOINTMENT 1. POST LAMINECTOMY SYNDROME- IN LINE AT CHECKOUT HISTORY OF PRESENT ILLNESS NEW PATIENT CONSULT: WHEN DID YOUR PAIN FIRST START? . BRIEFLY DESCRIBE HOW YOUR PAIN STARTED? . HOW DOES YOUR PAIN CHANGE WITH TIME? . DOES YOUR PAIN AWAKEN YOU FROM SLEEP? . HOW MANY HOURS OF SLEEP DO YOU NORMALLY GET? . ANY DIAGNOSTIC TESTING? . FACILITY WHERE TESTS WERE DONE? ____. PAIN TREATMENT TREATMENT YES CANCER HAVE YOU EVER HAD ANY TYPE OF CANCER?NO NO. 44 YEAR OLD MALE PATIENT WITH A HISTORY OF CHRONIC LOW BACK PAIN. THE PATIENT DESCRIBES THE PAIN BURNING, SHARP, SHOOTING, AND DAILY WITH A PAIN SCORE OF 5-9/10 DEPENDING ON PHYSICAL ACTIVITY. THE PATIENT STATES HIS PAIN INCREASES WITH ACTIVITIES. THE PATIENT SAYS HE HAD A FUSION BACK SURGERY DONE IN 2017, BUT HIS PAIN PERSISTS. PATIENT DENIES UNEXPLAINABLE WEIGHT LOSS, FEVER, CHILLS, NEW CHANGES ON HIS URINARY OR BOWEL CONTROL. PAIN SCREENING: PATIENT HAS A COMPLAINT OF ACUTE OR CHRONIC PAIN :YES FALL RISK SCREENING: SCREENING : NO FALLS IN THE PAST YEAR. TOUSSAINT INVENTORY: QUESTIONNAIRE ASSESSEDTBD SCORE VALUE CALCULATED TBD CURRENT MEDICATIONS TAKING FLUTICASONE PROPIONATE 50 MCG/ACT SUSPENSION 1 SPRAY IN EACH NOSTRIL NASALLY ONCE A DAY TAKING EPIPEN 2-CAMI 0.3 MG/0.3ML SOLUTION AUTO-INJECTOR NEEDED FOR ALLERGIC REACTION DIRECTED INJECTION DIRECTED, NOTES: LAST SUMMER TAKING PANTOPRAZOLE SODIUM 40 MG TABLET DELAYED RELEASE 1 TABLET ORALLY ONCE A DAY TAKING BUPROPION HCL ER (SMOKING DET) 150 MG TABLET EXTENDED RELEASE 12 HOUR 1 TABLET IN THE MORNING ORALLY ONCE A DAY TAKING FLUOXETINE HCL 60 MG TABLET 1 CAPSULE ORALLY ONCE A DAY TAKING MELOXICAM 15 MG TABLET 1 TABLET ORALLY ONCE A DAY TAKING TRAMADOL HCL ER 100 MG TABLET EXTENDED RELEASE 24 HOUR 1 TABLET ORALLY ONCE A DAY FOR SEVERE PAIN ONLY NOT-TAKING MELOXICAM 7.5 MG TABLET 1 TABLET WITH FOOD, NEVER ON EMPTY STOMACH ORALLY ONCE A DAY MEDICATION LIST REVIEWED AND RECONCILED WITH THE PATIENT PAST MEDICAL HISTORY BACK PAIN/POST LAMINECTOMY SYNDROME DM2-DIET CONTROLLED SEASONAL ALLERGIES HISTORY OF OPIOID ABUSE HEARING LOSS-BILATERAL DEPRESSION ALLERGIES BEE STINGS: SEVERE SWELLING SURGICAL HISTORY L4 L5 S1 DECOMPRESSION AND FUSION 10/13/16 CARPAL TUNNEL-LEFT 2013 TORN MENISCUS REPAIR-LEFT 2011 LEFT INGUINAL HERNIA REPAIR 2018 FAMILY HISTORY FATHER: ALIVE, HEALTHY MOTHER: ALIVE, DIAGNOSED WITH HYPERTENSION SIBLINGS: ALIVE MATERNAL GRAND FATHER: OTHER MALIGNANT NEOPLASM OF UNSPECIFIED SITE MATERNAL GRAND MOTHER: OTHER MALIGNANT NEOPLASM OF UNSPECIFIED SITE 2 BROTHER(S) , 1 SISTER(S) . 2 SON(S) , 1 DAUGHTER(S) - HEALTHY. BROTHER WITH SPINA BIFIDA. SOCIAL HISTORY GENERAL: TOBACCO USE ARE YOU A:NONSMOKER QUIT SMOKING 10 YEARS AGO ADDITIONAL FINDINGS: TOBACCO USERCHEWS TOBACCO PLANS TO STOP CHEW FOR THE FIRST OF THE YEAR SMOKING CESSATION INFORMATION GIVEN11/05/2017 DISCUSSED THAT CHEW IS NOT HEALTHY, PT AGREED HIV / HEP-C SCREENING HIV TEST OFFERED TO PATIENT:YES HIV TEST OFFERED TO PATIENT:YES DATE OFFERED:06/12/2019 DATE OFFERED:06/12/2019 HEP-C TEST OFFERED TO PATIENT:YES HEP-C TEST OFFERED TO PATIENT:YES DATE OFFERED:06/12/2019 DATE OFFERED:06/12/2019 BROCHURE PROVIDED TO PATIENTNO BROCHURE PROVIDED TO PATIENTNO LANGUAGE LANGUAGES SPOKEN:NORTHERN IRISH LANGUAGES SPOKEN:NORTHERN IRISH DOMESTIC VIOLENCE DO YOU FEEL SAFE IN YOUR ENVIRONMENT?YES RECREATIONAL DRUG USE DRUG USE?NO LEARNING BARRIERS / SPECIAL NEEDS BARRIERS TO LEARNING?NO HEARING IMPAIRED?YES :HEARING AIDES BILATERAL VISION IMPAIRED?NO COGNITIVELY IMPAIRED?NO READINESS TO LEARN?YES LEARNING PREFERENCES?NO LEARNING CAPABILITIES PRESENT?YES EMOTIONAL BARRIERS?NO SPECIAL DEVICES?NO DIETIST NEEDED?NO PAIN CLINIC PFS, CLERGY, PUBLIC HEALTH REFERRALS PFS REFERRAL NEEDED?NO PFS REFERRAL NEEDED?NO CLERGY REFERRAL NEEDED?NO CLERGY REFERRAL NEEDED?NO PUBLIC HEALTH REFERRAL NEEDED?NO PUBLIC HEALTH REFERRAL NEEDED?NO WAS THE PROVIDER NOTIFIED OF ANY PERTINENT INFO?NO WAS THE PROVIDER NOTIFIED OF ANY PERTINENT INFO?NO HAS THE PATIENT BEEN EDUCATED REGARDING HIS/HER PLAN OF CARE?YES HAS THE PATIENT BEEN EDUCATED REGARDING HIS/HER PLAN OF CARE?YES HAS THE PATIENT BEEN EDUCATED REGARDING PAIN, THE RISK FOR PAIN, THE IMPORTANCE OF EFFECTIVE PAIN MANAGEMENT, AND THE PAIN ASSESSMENT PROCESS?YES HAS THE PATIENT BEEN EDUCATED REGARDING PAIN, THE RISK FOR PAIN, THE IMPORTANCE OF EFFECTIVE PAIN MANAGEMENT, AND THE PAIN ASSESSMENT PROCESS?YES CLERGY REFERRAL NEEDED?NO WAS THE PROVIDER NOTIFIED OF ANY PERTINENT INFO?NO PFS REFERRAL NEEDED?NO PUBLIC HEALTH REFERRAL NEEDED?NO LATEX QUESTIONNAIRE LATEX ALLERGY : HAVE YOU EVER DEVELOPED ANY TYPE OF REACTION AFTER HANDLING LATEX PRODUCTS SUCH RUBBER GLOVES, CONDOMS, DIAPHRAGMS, BALLOONS, SOCKS, OR UNDERWEAR?NO LATEX ALLERGY : HAVE YOU EVER DEVELOPED ANY TYPE OF REACTION DURING OR AFTER DENTAL APPOINTMENT, VAGINAL/RECTAL EXAMINATION, SURGICAL PROCEDURE, OR ANY OTHER EXPOSURE?NO LATEX RISK : HAVE YOU EVER HAD ANY DIFFICULTY BREATHING OR HIVES AFTER EATING OR HANDLING ANY FRUITS, OR VEGETABLES; SUCH KIWI, BANANAS, STONE FRUITS, OR CHESTNUTSNO LATEX RISK : DO YOU HAVE A PREVIOUS PERSONAL HISTORY OF MORE THAN NINE SURGERIES, SPINA BIFIDA, OR REPEATED CATHERIZATIONS? NO LATEX RISK : ARE YOU FREQUENTLY EXPOSED TO LATEX PRODUCTS IN YOUR OCCUPATION?YES DATE ASKED : 11/05/2019 CAFFEINE CAFFEINE USE?YES CAFFEINE USE?YES HOW OFTEN AND HOW MUCH? COFFEE 1 CUP PER DAY HOW OFTEN AND HOW MUCH? COFFEE 1 CUP PER DAY ADVANCE DIRECTIVE ADVANCE DIRECTIVE DISCUSSED WITH PATIENT:YES 11/05/2019 PT IS GOING TO BRING IN HCP SO WE CAN WITNESS HIS SIGNATURE JEW [id number] CATHOLIC [id number] CATHOLIC MARITAL STATUS: . 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 SEXUAL HX HAD SEX IN THE LAST 12 MONTHS (VAGINAL, ORAL, OR ANAL)?YES HAD SEX IN THE LAST 12 MONTHS (VAGINAL, ORAL, OR ANAL)?YES WITHWOMEN ONLY WITHWOMEN ONLY USE PROTECTION?NO USE PROTECTION?NO 11/05/2019 PRE NPC PHONE CALL COMPLETED. AD. HOSPITALIZATION/MAJOR DIAGNOSTIC PROCEDURE SEE ABOVE REVIEW OF SYSTEMS REVIEWED BY: PROVIDER: DENNIS HEALY MD . CONSTITUTIONAL: ANY CHANGE IN YOUR MEDICAL CONDITION? NO . CHILLS NO . FEVER NO . INFECTION: DO YOU HAVE NEW INFECTIONS? NO . DO YOU HAVE HISTORY OF MRSA? NO . MUSCULOSKELETAL: ANY NEW PATTERNS OF PAIN OR NUMBNESS? YES "JUST FELL OFF STEP LADDER" INTO A HOT WATER TANK AT WORK . SYTEMIC LUPUS NO . GASTROENTEROLOGY: ANY NEW CHANGE IN BOWEL CONTROL? NO . BARRETTS ESOPHAGUS NO . CIRRHOSIS NO . HEPATITIS NO . LIVER FAILURE NO . ACID REFLUX NO . UNEXPLAINED WEIGHT LOSS NO . GENITOURINARY: ANY NEW CHANGE IN BLADDER CONTROL? NO . IS THERE A CHANCE YOU COULD BE ? NO . HEMATOLOGY/LYMPH: DO YOU TAKE ANY BLOOD THINNERS? (FOR EXAMPLE- COUMADIN, PLAVIX, AGGRENOX, PLATEL, PRADAXA, OR XARELTO) NO . WHEN WAS YOUR LAST DOSE? DATE: TIME: . LOW PLATELET COUNT NO . SICKLE CELL DISEASE NO . VON WILLIEBRANDS NO . FACTOR V LEIDEN NO . THALLASEMIA NO . ANEMIA NO . EASY BRUISING NO . NEUROLOGY: HAVE YOU FALLEN IN THE PAST 12 MONTHS? NO . ANY NEW EXTREMITY NUMBNESS OR WEAKNESS? NO . HEAD INJURY NO . DEMENTIA NO . CEREBRAL PALSY NO . MULTIPLE SCLEROSIS NO . DIZZINESS NO . HEADACHE NO . STROKES NO . VERTIGO NO . CARDIOLOGY: DO YOU HAVE A PACEMAKER OR DEFIBRILLATOR? NO . ANGINA NO . HEART ATTACK NO . HEART SURGERY NO . CONGESTIVE HEART FAILURE/FLUID OVERLOAD NO . CHEST PAIN NO . HIGH BLOOD PRESSURE NO . IRREGULAR HEART BEAT NO . RESPIRATORY: HAVE YOU BEEN SICK IN THE PAST WEEK? NO . FEVER NO . FLU LIKE SYMPTOMS? NO . CPAP NO . BYPAP NO . ASTHMA NO . EMPHYSEMA NO . CHRONIC LUNG DISEASES NO . SHORTNESS OF BREATH ON EXERTION NO . DO YOU USE ANY TYPE OF TOBACCO (SMOKE, SMOKELESS, CHEW)? NO . COUGH NO . SNORING NO . INTEGUMENTARY: DO YOU HAVE ANY RASHES OR OPEN SORES? NO . ALLERGIC/IMMUNO: ARE YOU ALLERGIC TO IV DYE? NO . ANY NEW ALLERGIES? NO . PSYCHIATRIC: DO YOU HAVE THOUGHTS OF HURTING YOURSELF OR SOMEONE ELSE? NO . ARE YOU ABUSED, NEGLECTED, OR IN AN UNSAFE ENVIRONMENT? NO . ENDOCRINOLOGY: ARE YOU DIABETIC? NO . THYROID DISORDER NO . OTHER: DO YOU NEED ANY PRESCRIPTIONS? PT STATES REFERRING PHYSCIAN WOULD BE PRESCRIBING . IF YES, PLEASE LIST: ____ . ANY NEW PROBLEMS WITH YOUR MEDICATIONS? NO . WHEN DID YOU LAST EAT? ____ . WHEN DID YOU LAST DRINK? ____ . WHAT DID YOU LAST DRINK? ____ . NAME OF PERSON DRIVING YOU HOME? ____ . DO YOU HAVE ANY OTHER QUESTIONS OR CONCERNS NO . VITAL SIGNS WT 176.4 LBS, HT 71 IN, BMI 24.60 INDEX, BP 156/90 MANUAL , HR 68 /MIN, RR 19 /MIN, TEMP 98.3 F, OXYGEN SAT % 98%, SAFE IN ENV? (Y/N) YES, NA INITIALS MS 1407, REVIEWED BY: KG. EXAMINATION GENERAL EXAMINATION: PATIENT IS ALERT O X 3 AND COOPERATIVE. LUNGS CLEAR, TO AUSCULTATION. HEART: NO MURMURS OR GALLOPS; FACIAL CRANIAL NERVES ARE GROSSLY NORMAL. GOOD SYMMETRY OF FACIAL MUSCLE MOVEMENT. NORMAL VISUAL GARCES. TENDERNESS OVER THE PARASPINAL MUSCLE GROUP OF THE LOW BACK AREA. PRESENCE OF BANDS OF TISSUE AND TRIGGER POINTS WITH RESTRICTION OF MOVEMENT OF THE LOW BACK. MRI OF THE LUMBAR SPINE DONE ON 09/28/2017 SHOWS A FUSION AT L4-S1 AND LAMINECTOMY AT L4-L5 LEVEL. ASSESSMENTS LUMBAR POST-LAMINECTOMY SYNDROME - M96.1 (PRIMARY) TREATMENT LUMBAR POST-LAMINECTOMY SYNDROME CLINICAL NOTES: WE DISCUSSED SEVERAL ISSUES WITH MR. EVERETT'S PAIN MANAGEMENT CASE. DUE TO THE TRIGGER POINTS, BANDS OF TISSUE, AND RESTRICTION OF MOVEMENT, I WOULD LIKE TO MOVE FORWARD WITH A LOW BACK TRIGGER POINT INJECTION AT THIS TIME. WE DISCUSSED THE BENEFITS, RISKS, AND ALTERNATIVES OF THE INJECTION AND THE PATIENT WOULD LIKE TO PROCEED. I AM LOOKING FOR LONG LASTING PAIN RELIEF FROM THIS INJECTION FOR THE PATIENT. I WILL REFER THE PATIENT TO [facility]'S PALLIATIVE CARE STAR PROGRAM TO CONSIDER MEDICATION MANAGEMENT, INCLUDING MEDICAL MARIJUANA. I AM PRESCRIBING 25 TABLETS OF TRAMADOL HCL TABLET 50 MG FOR THE MONTH TO HELP WITH PAIN RELIEF UNTIL THE PATIENT IS SEEN AT THE PALLIATIVE CARE CLINIC. ISTOP # [id number] WAS REVIEWED. INSTRUCTIONS WERE GIVEN, QUESTIONS WERE ANSWERED, PATIENT REPORTS UNDERSTANDING AND AGREES WITH THE PLAN. I, SAMY PEREIRA, DOCUMENTED THE ABOVE INFORMATION ACTING A SCRIBE FOR DR. HEALY. I HAVE REVIEWED THE ABOVE DOCUMENT, WRITTEN BY SAMY JACKSON AND I VERIFY THAT IT IS ACCURATE.. OTHERS START TRAMADOL HCL TABLET, 50 MG, 1 TABLET NEEDED, ORALLY, ONCE A DAY, 30 DAYS, 25, REFILLS 0 PROCEDURE CODES FA211 ESTABILISHED PATIENT [facility] FACILITY CHARGE [id number] CURRENT MEDS W/DOSAGES DOCUMENTED [id number] PAIN ASSESS POS TOOL F/U PLAN DOC DISPOSITION & COMMUNICATION FOLLOW UP REASON: LS TPI/REFER TO PALLIATIVE CARE FOR MEDS ELECTRONICALLY SIGNED BY DENNIS HEALY MD, MD ON 11/19/2019 AT 12:35 PM EDT DISCLAIMER : THIS IS A VISIT SUMMARY EXTRACTED FROM THE [employer] CHART. IT IS NOT A COPY OF THE [employer] PROGRESS NOTE. JOSIAS
== END ==
LOC: M PAIN 13:45
PROVIDERS: ATTEND Anesthesiology
DX: M96.1 Postlaminectomy syndrome, not elsewhere classified (principal)

== ENCOUNTER → 2019-12-18 | Outpatient (CLI) | payer OTHER ==
--- NOTE | 2019-12-20 00:50 | ECWPNPC ---
PATIENT NAME: MARY EVERETT : 1975 GENDER: MALE VISIT DATE: 12/18/2019 DISCHARGE DATE: 12/18/19 09 VISIT LOCKED DATE TIME: PHYSICIAN: SAMIRA MIRANDA RESOURCE: SAMIRA MIRANDA REASON FOR APPOINTMENT 1. MEDS PER DR. Morley HISTORY OF PRESENT ILLNESS HISTORY OF PRESENT ILLNESS: PAIN THE PATIENT DESCRIBES THE PAIN... 44-YEAR-OLD MALE IN FOR CHRONIC PAIN FOLLOW-UP. PATIENT HAS BEEN SEEN BY DR. HEALY IN THE PAST AND THEY DISCUSSED MEDICAL MARIJUANA AND PATIENT WAS STARTED ON TRAMADOL. PATIENT STATES TODAY THAT HE HAS DECIDED AGAINST USE OF MEDICAL MARIJUANA AND WOULD LIKE TO CONTINUE USE WITH THE TRAMADOL. HE RATES HIS PAIN CURRENTLY AT A 5 OUT OF 10 AND DESCRIBES IT ACHING, AND SORE. HE FEELS HIS TRAMADOL IS HELPFUL BUT IS QUESTIONING IF AN INCREASE IN MEDICATION WOULD BE MORE BENEFICIAL. FALL RISK SCREENING: SCREENING :NO FALLS REPORTED IN THE LAST YEAR CURRENT MEDICATIONS TAKING FLUTICASONE PROPIONATE 50 MCG/ACT SUSPENSION 1 SPRAY IN EACH NOSTRIL NASALLY ONCE A DAY TAKING EPIPEN 2-CAMI 0.3 MG/0.3ML SOLUTION AUTO-INJECTOR NEEDED FOR ALLERGIC REACTION DIRECTED INJECTION DIRECTED, NOTES: LAST SUMMER TAKING FLUOXETINE HCL 60 MG TABLET 1 CAPSULE ORALLY ONCE A DAY TAKING MELOXICAM 15 MG TABLET 1 TABLET ORALLY ONCE A DAY TAKING TRAMADOL HCL ER 100 MG TABLET EXTENDED RELEASE 24 HOUR 1 TABLET ORALLY ONCE A DAY FOR SEVERE PAIN ONLY TAKING BUPROPION HCL 75 MG TABLET 2 TABLETS ORALLY TWICE A DAY DISCONTINUED BUPROPION HCL ER (SMOKING DET) 150 MG TABLET EXTENDED RELEASE 12 HOUR 1 TABLET IN THE MORNING ORALLY ONCE A DAY DISCONTINUED TRAMADOL HCL 50 MG TABLET 1 TABLET NEEDED ORALLY ONCE A DAY DISCONTINUED MELOXICAM 7.5 MG TABLET 1 TABLET WITH FOOD, NEVER ON EMPTY STOMACH ORALLY ONCE A DAY MEDICATION LIST REVIEWED AND RECONCILED WITH THE PATIENT PAST MEDICAL HISTORY BACK PAIN/POST LAMINECTOMY SYNDROME DM2-DIET CONTROLLED SEASONAL ALLERGIES HISTORY OF OPIOID ABUSE HEARING LOSS-BILATERAL DEPRESSION ALLERGIES BEE STINGS: SEVERE SWELLING - ALLERGY SURGICAL HISTORY L4 L5 S1 DECOMPRESSION AND FUSION 10/13/16 CARPAL TUNNEL-LEFT 2013 TORN MENISCUS REPAIR-LEFT 2011 LEFT INGUINAL HERNIA REPAIR 2018 FAMILY HISTORY FATHER: ALIVE, HEALTHY MOTHER: ALIVE, DIAGNOSED WITH HYPERTENSION SIBLINGS: ALIVE MATERNAL GRAND FATHER: OTHER MALIGNANT NEOPLASM OF UNSPECIFIED SITE MATERNAL GRAND MOTHER: OTHER MALIGNANT NEOPLASM OF UNSPECIFIED SITE 2 BROTHER(S) , 1 SISTER(S) . 2 SON(S) , 1 DAUGHTER(S) - HEALTHY. BROTHER WITH SPINA BIFIDA. SOCIAL HISTORY GENERAL: TOBACCO USE ARE YOU A:NONSMOKER QUIT SMOKING 10 YEARS AGO ADDITIONAL FINDINGS: TOBACCO USERCHEWS TOBACCO PLANS TO STOP CHEW FOR THE FIRST OF THE YEAR SMOKING CESSATION INFORMATION GIVEN11/05/2017 DISCUSSED THAT CHEW IS NOT HEALTHY, PT AGREED HIV / HEP-C SCREENING HIV TEST OFFERED TO PATIENT:YES DATE OFFERED:06/12/2019 HEP-C TEST OFFERED TO PATIENT:YES DATE OFFERED:06/12/2019 BROCHURE PROVIDED TO PATIENTNO LANGUAGE LANGUAGES SPOKEN:SWEDISH DOMESTIC VIOLENCE DO YOU FEEL SAFE IN YOUR ENVIRONMENT?YES NEW PATIENT PAIN DIARY TODAY'S VISIT 12/18/2019 PATIENT DESCRIBES PAIN :ACHING, BURNING, HAVE IT ALL THE TIME, SHARP, STABBING, SORE, SHOOTING FROM 0-10, WHAT LEVEL IS YOUR PAIN TODAY?5 PRECIPITATING FACTORS WORKING, BEING IN ONE POSITION FOR TOO LONG, LAYING ON STOMAC ALLEVIATING FACTORS REST, TENS UNIT, HEAT, TRAMADOL IMPACT ON FUNCTION LIMITS HIS ABILITY TO WORK RECREATIONAL DRUG USE DRUG USE?NO LEARNING BARRIERS / SPECIAL NEEDS BARRIERS TO LEARNING?NO HEARING IMPAIRED?YES VISION IMPAIRED?NO COGNITIVELY IMPAIRED?NO :HEARING AIDES BILATERAL READINESS TO LEARN?YES LEARNING PREFERENCES?NO LEARNING CAPABILITIES PRESENT?YES EMOTIONAL BARRIERS?NO SPECIAL DEVICES?NO MULTIMEDIA TEACHER NEEDED?NO PAIN CLINIC PFS, CLERGY, PUBLIC HEALTH REFERRALS PFS REFERRAL NEEDED?NO CLERGY REFERRAL NEEDED?NO PUBLIC HEALTH REFERRAL NEEDED?NO HAS THE PATIENT BEEN EDUCATED REGARDING HIS/HER PLAN OF CARE?YES HAS THE PATIENT BEEN EDUCATED REGARDING PAIN, THE RISK FOR PAIN, THE IMPORTANCE OF EFFECTIVE PAIN MANAGEMENT, AND THE PAIN ASSESSMENT PROCESS?YES LATEX QUESTIONNAIRE LATEX ALLERGY : HAVE YOU EVER DEVELOPED ANY TYPE OF REACTION AFTER HANDLING LATEX PRODUCTS SUCH RUBBER GLOVES, CONDOMS, DIAPHRAGMS, BALLOONS, SOCKS, OR UNDERWEAR?NO LATEX ALLERGY : HAVE YOU EVER DEVELOPED ANY TYPE OF REACTION DURING OR AFTER DENTAL APPOINTMENT, VAGINAL/RECTAL EXAMINATION, SURGICAL PROCEDURE, OR ANY OTHER EXPOSURE?NO LATEX RISK : HAVE YOU EVER HAD ANY DIFFICULTY BREATHING OR HIVES AFTER EATING OR HANDLING ANY FRUITS, OR VEGETABLES; SUCH KIWI, BANANAS, STONE FRUITS, OR CHESTNUTSNO LATEX RISK : DO YOU HAVE A PREVIOUS PERSONAL HISTORY OF MORE THAN NINE SURGERIES, SPINA BIFIDA, OR REPEATED CATHERIZATIONS? NO LATEX RISK : ARE YOU FREQUENTLY EXPOSED TO LATEX PRODUCTS IN YOUR OCCUPATION?YES DATE ASKED : 12/18/2019 CAFFEINE CAFFEINE USE?YES HOW OFTEN AND HOW MUCH? COFFEE 1 CUP PER DAY ADVANCE DIRECTIVE ADVANCE DIRECTIVE DISCUSSED WITH PATIENT:YES 12/18/2019 PT IS GOING TO BRING IN HCP SO WE CAN WITNESS HIS SIGNATURE TAOISM [id number] PENTECOSTALISM MARITAL STATUS: . 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 CONSTITUTIONAL: ANY CHANGE IN YOUR MEDICAL CONDITION? NO . CHILLS NO . FEVER NO . INFECTION: DO YOU HAVE NEW INFECTIONS? NO . DO YOU HAVE HISTORY OF MRSA? NO . MUSCULOSKELETAL: ANY NEW PATTERNS OF PAIN OR NUMBNESS? NO . GASTROENTEROLOGY: ANY NEW CHANGE IN BOWEL CONTROL? NO . GENITOURINARY: ANY NEW CHANGE IN BLADDER CONTROL? NO . IS THERE A CHANCE YOU COULD BE ? NO . HEMATOLOGY/LYMPH: DO YOU TAKE ANY BLOOD THINNERS? (FOR EXAMPLE- COUMADIN, PLAVIX, AGGRENOX, PLATEL, PRADAXA, OR XARELTO) NO . WHEN WAS YOUR LAST DOSE? DATE: TIME: . NEUROLOGY: HAVE YOU FALLEN IN THE PAST 12 MONTHS? NO . ANY NEW EXTREMITY NUMBNESS OR WEAKNESS? YES, LEFT WRIST NUMB AND WITH SHARP SHOOTING PAIN. HE IS FOLLOWED BY ORTHO . CARDIOLOGY: DO YOU HAVE A PACEMAKER OR DEFIBRILLATOR? NO . RESPIRATORY: HAVE YOU BEEN SICK IN THE PAST WEEK? NO . FEVER NO . FLU LIKE SYMPTOMS? NO . COUGH NO . INTEGUMENTARY: DO YOU HAVE ANY RASHES OR OPEN SORES? NO . ALLERGIC/IMMUNO: ARE YOU ALLERGIC TO IV DYE? NO . ANY NEW ALLERGIES? NO . PSYCHIATRIC: DO YOU HAVE THOUGHTS OF HURTING YOURSELF OR SOMEONE ELSE? NO . ARE YOU ABUSED, NEGLECTED, OR IN AN UNSAFE ENVIRONMENT? NO . ENDOCRINOLOGY: ARE YOU DIABETIC? NO . OTHER: DO YOU NEED ANY PRESCRIPTIONS? YES, . IF YES, PLEASE LIST: TRAMADOL--HE WOULD LIKE TO DISCUSS INCREASING THIS . ANY NEW PROBLEMS WITH YOUR MEDICATIONS? NO . WHEN DID YOU LAST EAT? ____ . WHEN DID YOU LAST DRINK? ____ . WHAT DID YOU LAST DRINK? ____ . NAME OF PERSON DRIVING YOU HOME? ____ . DO YOU HAVE ANY OTHER QUESTIONS OR CONCERNS NO . VITAL SIGNS WT 179.6 LBS, HT 71 IN, BMI 25.05 INDEX, BP 121/76 MM HG, HR 79 /MIN, RR 18 /MIN, TEMP 97.5 F, OXYGEN SAT % 99%, SAFE IN ENV? (Y/N) Y, NA INITIALS AW 0855, REVIEWED BY: AD. EXAMINATION GENERAL EXAMINATION: GENERALNO ACUTE DISTRESS, WELL NOURISHED AND HYDRATED. PSYCHAPPROPRIATE MOOD AND AFFECT . LUNGS:CLEAR TO AUSCULTATION BILATERALLY, NO WHEEZES, RHONCHI, RALES. HEART:NO MURMURS, REGULAR RATE AND RHYTHM. 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 GIVEN PRESENTING SYMPTOMS AND RESULTS OF PHYSICAL EXAMINATION RECOMMENDED INCREASING TRAMADOL TO 200MG DAILY NEEDED. PATIENT TO HAVE UPCOMING TPI AND WE'LL FOLLOW-UP WITH THIS SPRAY I PAINTER THEREAFTER. PATIENT HAS EXPRESSED UNDERSTANDING OF AND WAS IN AGREEMENT WITH TREATMENT PLAN. GIVEN TIME TO ASK QUESTIONS AND EXPRESS CONCERNS., ISTOP REGISTRY REVIEWED AND DEMONSTRATES COMPLLIANCE. (REF # [id number] ). PROCEDURE CODES FA211 ESTABILISHED PATIENT [facility] CHARGE DISPOSITION & COMMUNICATION FOLLOW UP AFTER TPI (REASON: BACK PAIN ) ELECTRONICALLY SIGNED BY SHEKHAR HARO ON 12/19/2019 AT 09:26 AM EDT DISCLAIMER : THIS IS A VISIT SUMMARY EXTRACTED FROM THE [employer] CHART. IT IS NOT A COPY OF THE [employer] PROGRESS NOTE. JOSIAS
== END ==
LOC: M PAIN 08:45
PROVIDERS: ATTEND Family Medicine
DX: M96.1 Postlaminectomy syndrome, not elsewhere classified (principal); E11.9 Type 2 diabetes mellitus without complications; Z86.59 Personal history of other mental and behavioral disorders; F17.220 Nicotine dependence, chewing tobacco, uncomplicated; Z91.030 Bee allergy status; Z79.891 Long term (current) use of opiate analgesic; Z79.899 Other long term (current) drug therapy

== ENCOUNTER 2019-12-30 15:05 | Outpatient (RCR) | payer MEDICAID, SELFPAY | END 2020-01-08 | LOC: M OUTALCOH 15:05 | PROVIDERS: ATTEND Psychiatry & Neurology Addiction Medicine | DX: F11.20 Opioid dependence, uncomplicated (principal); F17.200 Nicotine dependence, unspecified, uncomplicated ==

== ENCOUNTER → 2020-01-07 | Outpatient (CLI) | payer OTHER ==
[~2020-01-07] MED LIST changes: +BUPIVACAINE HCL 0.25% 10ML VIAL As Ordered ONE; +BUPIVACAINE HCL 0.25% 30ML VIAL As Ordered ONE; +diazePAM 5 MG TAB As Ordered ONE; +oxyCODONE 5MG TAB As Ordered ONE
--- NOTE | 2020-01-14 01:07 | ECWPNPC ---
PATIENT NAME: MARY EVERETT : 1975 GENDER: MALE VISIT DATE: 01/07/2020 DISCHARGE DATE: 01/07/20 1523 VISIT LOCKED DATE TIME: PHYSICIAN: DENNIS HEALY MD RESOURCE: DENNIS HEALY MD REASON FOR APPOINTMENT 1. LS TPI HISTORY OF PRESENT ILLNESS HISTORY OF PRESENT ILLNESS: PAIN THE PATIENT DESCRIBES THE PAIN... FALL RISK SCREENING: SCREENING :NO FALLS REPORTED IN THE LAST YEAR CURRENT MEDICATIONS TAKING FLUTICASONE PROPIONATE 50 MCG/ACT SUSPENSION 1 SPRAY IN EACH NOSTRIL NASALLY ONCE A DAY, NOTES: 01/06 3AM TAKING EPIPEN 2-CAMI 0.3 MG/0.3ML SOLUTION AUTO-INJECTOR NEEDED FOR ALLERGIC REACTION DIRECTED INJECTION DIRECTED, NOTES: LAST SUMMER TAKING TRAMADOL HCL ER 200 MG TABLET EXTENDED RELEASE 24 HOUR 1 TABLET ORALLY ONCE A DAY FOR SEVERE PAIN ONLY, NOTES: 01/06 3AM TAKING BUPROPION HCL 75 MG TABLET 1 TABLET ORALLY DAILY, NOTES: 01/06 4AM TAKING FLUOXETINE HCL 40 MG CAPSULE 1 TABLET ORALLY ONCE A DAY, NOTES: 01/06 4AM TAKING ARIPIPRAZOLE 5 MG TABLET 1 TABLET ORALLY ONCE A DAY, NOTES: 01/06 4AM NOT-TAKING MELOXICAM 15 MG TABLET 1 TABLET ORALLY ONCE A DAY MEDICATION LIST REVIEWED AND RECONCILED WITH THE PATIENT PAST MEDICAL HISTORY BACK PAIN/POST LAMINECTOMY SYNDROME DM2-DIET CONTROLLED SEASONAL ALLERGIES HISTORY OF OPIOID ABUSE HEARING LOSS-BILATERAL DEPRESSION ANXIETY ALLERGIES BEE STINGS: SEVERE SWELLING - ALLERGY SURGICAL HISTORY L4 L5 S1 DECOMPRESSION AND FUSION 10/13/16 CARPAL TUNNEL-LEFT 2013 TORN MENISCUS REPAIR-LEFT 2011 LEFT INGUINAL HERNIA REPAIR 2019 FAMILY HISTORY FATHER: ALIVE, HEALTHY MOTHER: ALIVE, DIAGNOSED WITH HYPERTENSION SIBLINGS: ALIVE MATERNAL GRAND FATHER: OTHER MALIGNANT NEOPLASM OF UNSPECIFIED SITE MATERNAL GRAND MOTHER: OTHER MALIGNANT NEOPLASM OF UNSPECIFIED SITE 2 BROTHER(S) , 1 SISTER(S) . 2 SON(S) , 1 DAUGHTER(S) - HEALTHY. BROTHER WITH SPINA BIFIDA. SOCIAL HISTORY GENERAL: TOBACCO USE ARE YOU A:NONSMOKER QUIT SMOKING 10 YEARS AGO ADDITIONAL FINDINGS: TOBACCO USERCHEWS TOBACCO PLANS TO STOP CHEW FOR THE FIRST OF THE YEAR SMOKING CESSATION INFORMATION GIVEN11/05/2017 DISCUSSED THAT CHEW IS NOT HEALTHY, PT AGREED LATEX QUESTIONNAIRE LATEX ALLERGY : HAVE YOU EVER DEVELOPED ANY TYPE OF REACTION AFTER HANDLING LATEX PRODUCTS SUCH RUBBER GLOVES, CONDOMS, DIAPHRAGMS, BALLOONS, SOCKS, OR UNDERWEAR?NO LATEX ALLERGY : HAVE YOU EVER DEVELOPED ANY TYPE OF REACTION DURING OR AFTER DENTAL APPOINTMENT, VAGINAL/RECTAL EXAMINATION, SURGICAL PROCEDURE, OR ANY OTHER EXPOSURE?NO LATEX RISK : HAVE YOU EVER HAD ANY DIFFICULTY BREATHING OR HIVES AFTER EATING OR HANDLING ANY FRUITS, OR VEGETABLES; SUCH KIWI, BANANAS, STONE FRUITS, OR CHESTNUTSNO LATEX RISK : DO YOU HAVE A PREVIOUS PERSONAL HISTORY OF MORE THAN NINE SURGERIES, SPINA BIFIDA, OR REPEATED CATHERIZATIONS? NO LATEX RISK : ARE YOU FREQUENTLY EXPOSED TO LATEX PRODUCTS IN YOUR OCCUPATION?YES DATE ASKED : 01/06/2020 ALCOHOL SCREENING DID YOU HAVE A DRINK CONTAINING ALCOHOL IN THE PAST YEAR?NO POINTS0 INTERPRETATIONNEGATIVE RECREATIONAL DRUG USE DRUG USE?NO CAFFEINE CAFFEINE USE?YES HOW OFTEN AND HOW MUCH? COFFEE 1 CUP PER DAY SEXUAL HX HAD SEX IN THE LAST 12 MONTHS (VAGINAL, ORAL, OR ANAL)?YES WITHWOMEN ONLY USE PROTECTION?NO HIV / HEP-C SCREENING HIV TEST OFFERED TO PATIENT:YES DATE OFFERED:06/12/2019 HEP-C TEST OFFERED TO PATIENT:YES DATE OFFERED:06/12/2019 BROCHURE PROVIDED TO PATIENTNO YAZIDISM [id number] MORMONISM LANGUAGE LANGUAGES SPOKEN:JORDANIAN LEARNING BARRIERS / SPECIAL NEEDS BARRIERS TO LEARNING?NO HEARING IMPAIRED?YES VISION IMPAIRED?NO COGNITIVELY IMPAIRED?NO :HEARING AIDES BILATERAL READINESS TO LEARN?YES LEARNING PREFERENCES?NO LEARNING CAPABILITIES PRESENT?YES EMOTIONAL BARRIERS?NO SPECIAL DEVICES?NO ALUMINUM CAN COLLECTOR NEEDED?NO DOMESTIC VIOLENCE DO YOU FEEL SAFE IN YOUR ENVIRONMENT?YES 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 EXERCISE: DAILY, WALKS, , RUNNING. MARITAL STATUS: . NEW PATIENT PAIN DIARY TODAY'S VISIT 01/07/2020 PATIENT DESCRIBES PAIN :ACHING, BURNING, HAVE IT ALL THE TIME, SHARP, STABBING, SORE, SHOOTING FROM 0-10, WHAT LEVEL IS YOUR PAIN TODAY?8 PRECIPITATING FACTORS WORKING, BEING IN ONE POSITION FOR TOO LONG, LAYING ON STOMAC ALLEVIATING FACTORS REST, TENS UNIT, HEAT, TRAMADOL IMPACT ON FUNCTION LIMITS HIS ABILITY TO WORK PAIN CLINIC PFS, CLERGY, PUBLIC HEALTH REFERRALS PFS REFERRAL NEEDED?NO CLERGY REFERRAL NEEDED?NO PUBLIC HEALTH REFERRAL NEEDED?NO HAS THE PATIENT BEEN EDUCATED REGARDING HIS/HER PLAN OF CARE?YES HAS THE PATIENT BEEN EDUCATED REGARDING PAIN, THE RISK FOR PAIN, THE IMPORTANCE OF EFFECTIVE PAIN MANAGEMENT, AND THE PAIN ASSESSMENT PROCESS?YES ADVANCE DIRECTIVE ADVANCE DIRECTIVE DISCUSSED WITH PATIENT:YES 12/18/2019 PT IS GOING TO BRING IN HCP SO WE CAN WITNESS HIS SIGNATURE HOSPITALIZATION/MAJOR DIAGNOSTIC PROCEDURE SEE ABOVE REVIEW OF SYSTEMS REVIEWED BY: PROVIDER: DENNIS HEALY MD . CONSTITUTIONAL: ANY CHANGE IN YOUR MEDICAL CONDITION? NO . CHILLS NO . FEVER NO . INFECTION: DO YOU HAVE NEW INFECTIONS? NO . DO YOU HAVE HISTORY OF MRSA? NO . MUSCULOSKELETAL: ANY NEW PATTERNS OF PAIN OR NUMBNESS? PAIN TYPICALLY IN CENTER LOW BACK AND NOW RADIATING TO RIGHT LOW BACK . GASTROENTEROLOGY: ANY NEW CHANGE IN BOWEL CONTROL? NO . GENITOURINARY: ANY NEW CHANGE IN BLADDER CONTROL? NO . IS THERE A CHANCE YOU COULD BE ? NO . HEMATOLOGY/LYMPH: DO YOU TAKE ANY BLOOD THINNERS? (FOR EXAMPLE- COUMADIN, PLAVIX, AGGRENOX, PLATEL, PRADAXA, OR XARELTO) NO . WHEN WAS YOUR LAST DOSE? DATE: TIME: . NEUROLOGY: HAVE YOU FALLEN IN THE PAST 12 MONTHS? YES, PT STATES THAT HE FELL ONE WEEK AGO OFF LADDER, SPOKE WITH PAIN MGMT, TOOK COUPLE OF DAYS OFF, PAIN HAS RESOLVED. DID NOT SEEK MEDICAL ATTENTION . ANY NEW EXTREMITY NUMBNESS OR WEAKNESS? NO . CARDIOLOGY: DO YOU HAVE A PACEMAKER OR DEFIBRILLATOR? NO . RESPIRATORY: HAVE YOU BEEN SICK IN THE PAST WEEK? NO . FEVER NO . FLU LIKE SYMPTOMS? NO . COUGH NO . INTEGUMENTARY: DO YOU HAVE ANY RASHES OR OPEN SORES? NO . ALLERGIC/IMMUNO: ARE YOU ALLERGIC TO IV DYE? NO . ANY NEW ALLERGIES? NO . PSYCHIATRIC: DO YOU HAVE THOUGHTS OF HURTING YOURSELF OR SOMEONE ELSE? NO . ARE YOU ABUSED, NEGLECTED, OR IN AN UNSAFE ENVIRONMENT? NO . ENDOCRINOLOGY: ARE YOU DIABETIC? TYPE 2 MANAGED WITH DIET . OTHER: DO YOU NEED ANY PRESCRIPTIONS? NO . IF YES, PLEASE LIST: ____ . ANY NEW PROBLEMS WITH YOUR MEDICATIONS? NO . WHEN DID YOU LAST EAT? 01/06 630AM . WHEN DID YOU LAST DRINK? 01/06 12NOON . WHAT DID YOU LAST DRINK? WATER . NAME OF PERSON DRIVING YOU HOME? CRYSTAL . DO YOU HAVE ANY OTHER QUESTIONS OR CONCERNS NO . VITAL SIGNS WT 183.6 LBS, HT 71 IN, BMI 25.60 INDEX, BP 153/83 MM HG, HR 97 /MIN, RR 18 /MIN, TEMP 97.6 F, OXYGEN SAT % 100%, SAFE IN ENV? (Y/N) Y, NA INITIALS AW 1335, REVIEWED BY: BRONWYN. ASSESSMENTS MYALGIA, OTHER SITE - M79.18 (PRIMARY) LOW BACK PAIN - M54.5 OTHER CHRONIC PAIN - G89.29 PROCEDURES PN TRIGGER POINT INJECTION NO STEROIDS DATE OF PROCEDURE : PRE PROCEDURE DIAGNOSIS 1. MYALGIA 2. PAIN AT BILATERAL LOWER BACK AREA POST PROCEDURE DIAGNOSIS 1. MYALGIA 2. PAIN AT BILATERAL LOWER BACK AREA PROCEDURE TRIGGER POINT INJECTION AT BILATERAL LOWER BACK AREA SURGEON DR. DENNIS HEALY ACCOUNTANT SYSTEMS NONE ANESTHESIA LOCAL PRE PROCEDURE NOTE 44-YEAR-OLD PATIENT WITH HISTORY OF CHRONIC PAIN AT BILATERAL LOWER BACK AREA. I EVALUATED THE PATIENT AND REVIEWED THE CHART. THERE IS EVIDENCE OF BANDS OF TISSUE WITH RESTRICTION OF MOVEMENT AND PRESENCE OF TRIGGER POINT AT THE BILATERAL LOWER BACK AREA. I WENT OVER THE RISKS, ALTERNATIVES, AND BENEFITS ASSOCIATED WITH THIS PROCEDURE. THE PATIENT WOULD LIKE TO PROCEED AND GAVE CONSENT TO PERFORM THE PROCEDURE. THE PATIENT DENIES UNEXPLAINABLE WEIGHT LOSS, FEVER, CHILLS, OR NEW CHANGES IN URINARY OR BOWEL CONTROL DESCRIPTION OF PROCEDURE THE PATIENT WAS BROUGHT TO THE PROCEDURE ROOM AND PLACED IN THE SITTING POSITION. THE AREA WAS CLEANED WITH ALCOHOL. THE PROCEDURE WAS DONE USING ASEPTIC STERILE TECHNIQUES. I CHECKED LATERALITY AND THE LEVEL WHERE THE PROCEDURE WAS GOING TO BE PERFORMED WITH THE PATIENT AND THE SUPPORTING STAFF AT THE MOMENT OF THE TIME OUT IN THE PROCEDURE ROOM. USING A 25-GAUGE NEEDLE, TRIGGER POINTS WERE INJECTED INTO THE BILATERAL LOWER BACK AREA WITH A TOTAL OF 40 ML OF BUPIVACAINE 0.25%. AGREED WITH THE PATIENT THE PROCEDURE WAS DONE WITHOUT STEROIDS. THERE WAS NO EVIDENCE OF BLOOD, PARESTHESIA OR CEREBROSPINAL FLUID DURING THE PROCEDURE. THE PATIENT WAS SENT TO THE RECOVERY ROOM. THE PATIENT WAS MOVING THE EXTREMITIES AND DOING WELL. THERE WAS NO COMPLICATION DURING THE PROCEDURE. POST PROCEDURE NOTE THE PATIENT WILL BE SEEN IN A FOLLOW UP IN THE NEXT FEW WEEKS. I AM LOOKING FOR LONG LASTING PAIN RELIEF FOR THE PATIENT WITH THIS INJECTION. INSTRUCTIONS WERE GIVEN, QUESTIONS WERE ANSWERED, AND THE PATIENT EXPRESSED UNDERSTANDING AND AGREED WITH THE PLAN. I, JOSE RODRÍGUEZ, DOCUMENTED THE ABOVE INFORMATION ACTING A SCRIBE FOR DR. HEALY. 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 IT IS NOT A COPY OF THE [employer] PROGRESS NOTE. JOSIAS
== END ==
LOC: M PAIN 13:45
PROVIDERS: ATTEND Anesthesiology
DX: M79.18 Myalgia, other site (principal); M54.5 Low back pain; G89.29 Other chronic pain; E11.9 Type 2 diabetes mellitus without complications; Z86.59 Personal history of other mental and behavioral disorders; F17.220 Nicotine dependence, chewing tobacco, uncomplicated; Z91.030 Bee allergy status; Z79.891 Long term (current) use of opiate analgesic; Z79.899 Other long term (current) drug therapy

== ENCOUNTER → 2020-01-23 | Outpatient (CLI) | payer OTHER ==
[~2020-01-23] MED LIST changes: -BUPIVACAINE HCL 0.25% 10ML VIAL As Ordered ONE; -BUPIVACAINE HCL 0.25% 30ML VIAL As Ordered ONE; -diazePAM 5 MG TAB As Ordered ONE; -oxyCODONE 5MG TAB As Ordered ONE
--- NOTE | 2020-01-27 02:26 | ECWPNPC ---
PATIENT NAME: MARY EVERETT : 1975 GENDER: MALE VISIT DATE: 01/23/2020 DISCHARGE DATE: 01/23/20 1014 VISIT LOCKED DATE TIME: PHYSICIAN: SAMIRA MIRANDA RESOURCE: SAMIRA MIRANDA REASON FOR APPOINTMENT 1. POST TPI/MEDS [phone] PAT PHONE CALL COMPLETED HISTORY OF PRESENT ILLNESS HISTORY OF PRESENT ILLNESS: PAIN THE PATIENT DESCRIBES THE PAIN... PERMISSION REQUESTED AND RECEIVED FROM PATIENT TO PERFORM TELEPHONE VISIT. 44-YEAR-OLD MALE IN FOR CHRONIC PAIN FOLLOW-UP. HE RATES HIS PAIN CURRENTLY AT A 6 OUT OF 10 AND DESCRIBES IT A THROBBING PRESSURE TYPE PAIN. PATIENT HAD A RECENT TRIGGER POINT INJECTION AND HE FEELS THIS WAS BENEFICIAL RATING HIS PAIN PREPROCEDURE AT AN 8 OUT OF 10 AND POSTPROCEDURE AT BETWEEN A 5-6 OUT OF 10. PATIENT IS CURRENTLY ON NORCO TO HELP ALLEVIATE HIS PAIN SYMPTOMS AND ADMITS THAT THIS HAS BEEN BENEFICIAL. FALL RISK SCREENING: SCREENING :NO FALLS REPORTED IN THE LAST YEAR CURRENT MEDICATIONS TAKING FLUTICASONE PROPIONATE 50 MCG/ACT SUSPENSION 1 SPRAY IN EACH NOSTRIL NASALLY ONCE A DAY, NOTES: 01/06 3AM TAKING EPIPEN 2-CAMI 0.3 MG/0.3ML SOLUTION AUTO-INJECTOR NEEDED FOR ALLERGIC REACTION DIRECTED INJECTION DIRECTED, NOTES: LAST SUMMER TAKING NORCO 5-325 MG TABLET 1 TABLET NEEDED ORALLY TWICE DAILY NEEDED TAKING OLANZAPINE 5 MG TABLET 1 TABLET ORALLY ONCE A DAY WITH FLUOXETINE TAKING FLUOXETINE HCL 40 MG CAPSULE 1 TABLET ORALLY ONCE A DAY NOT-TAKING BUPROPION HCL 75 MG TABLET 1 TABLET ORALLY DAILY NOT-TAKING MELOXICAM 15 MG TABLET 1 TABLET ORALLY ONCE A DAY MEDICATION LIST REVIEWED AND RECONCILED WITH THE PATIENT PAST MEDICAL HISTORY BACK PAIN/POST LAMINECTOMY SYNDROME DM2-DIET CONTROLLED SEASONAL ALLERGIES HISTORY OF OPIOID ABUSE HEARING LOSS-BILATERAL DEPRESSION ANXIETY ALLERGIES BEE STINGS: SEVERE SWELLING - ALLERGY SURGICAL HISTORY L4 L5 S1 DECOMPRESSION AND FUSION 10/13/16 CARPAL TUNNEL-LEFT 2013 TORN MENISCUS REPAIR-LEFT 2011 LEFT INGUINAL HERNIA REPAIR 2019 FAMILY HISTORY FATHER: ALIVE, HEALTHY MOTHER: ALIVE, DIAGNOSED WITH HYPERTENSION SIBLINGS: ALIVE MATERNAL GRAND FATHER: OTHER MALIGNANT NEOPLASM OF UNSPECIFIED SITE MATERNAL GRAND MOTHER: OTHER MALIGNANT NEOPLASM OF UNSPECIFIED SITE 2 BROTHER(S) , 1 SISTER(S) . 2 SON(S) , 1 DAUGHTER(S) - HEALTHY. BROTHER WITH SPINA BIFIDA. SOCIAL HISTORY GENERAL: TOBACCO USE ARE YOU A:NONSMOKER QUIT SMOKING 10 YEARS AGO ADDITIONAL FINDINGS: TOBACCO USERCHEWS TOBACCO PLANS TO STOP CHEW FOR THE FIRST OF THE YEAR SMOKING CESSATION INFORMATION GIVEN11/05/2017 DISCUSSED THAT CHEW IS NOT HEALTHY, PT AGREED LATEX QUESTIONNAIRE LATEX ALLERGY : HAVE YOU EVER DEVELOPED ANY TYPE OF REACTION AFTER HANDLING LATEX PRODUCTS SUCH RUBBER GLOVES, CONDOMS, DIAPHRAGMS, BALLOONS, SOCKS, OR UNDERWEAR?NO LATEX ALLERGY : HAVE YOU EVER DEVELOPED ANY TYPE OF REACTION DURING OR AFTER DENTAL APPOINTMENT, VAGINAL/RECTAL EXAMINATION, SURGICAL PROCEDURE, OR ANY OTHER EXPOSURE?NO DATE ASKED : 01/06/2020 LATEX RISK : HAVE YOU EVER HAD ANY DIFFICULTY BREATHING OR HIVES AFTER EATING OR HANDLING ANY FRUITS, OR VEGETABLES; SUCH KIWI, BANANAS, STONE FRUITS, OR CHESTNUTSNO LATEX RISK : DO YOU HAVE A PREVIOUS PERSONAL HISTORY OF MORE THAN NINE SURGERIES, SPINA BIFIDA, OR REPEATED CATHERIZATIONS? NO LATEX RISK : ARE YOU FREQUENTLY EXPOSED TO LATEX PRODUCTS IN YOUR OCCUPATION?YES ALCOHOL SCREENING DID YOU HAVE A DRINK CONTAINING ALCOHOL IN THE PAST YEAR?NO POINTS0 INTERPRETATIONNEGATIVE RECREATIONAL DRUG USE DRUG USE?NO CAFFEINE CAFFEINE USE?YES HOW OFTEN AND HOW MUCH? COFFEE 1 CUP PER DAY SEXUAL HX HAD SEX IN THE LAST 12 MONTHS (VAGINAL, ORAL, OR ANAL)?YES WITHWOMEN ONLY USE PROTECTION?NO HIV / HEP-C SCREENING HIV TEST OFFERED TO PATIENT:YES DATE OFFERED:06/12/2019 HEP-C TEST OFFERED TO PATIENT:YES DATE OFFERED:06/12/2019 BROCHURE PROVIDED TO PATIENTNO [employer] [id number] LANG[employer] LANGUAGES SPOKEN:SAMMARINESE LEARNING BARRIERS / SPECIAL NEEDS BARRIERS TO LEARNING?NO HEARING IMPAIRED?YES VISION IMPAIRED?NO COGNITIVELY IMPAIRED?NO :HEARING AIDES BILATERAL READINESS TO LEARN?YES LEARNING PREFERENCES?NO LEARNING CAPABILITIES PRESENT?YES EMOTIONAL BARRIERS?NO SPECIAL DEVICES?NO PIPELAYING FITTER NEEDED?NO DOMESTIC VIOLENCE DO YOU FEEL SAFE IN YOUR ENVIRONMENT?YES 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 EXERCISE: DAILY, WALKS, , RUNNING. MARITAL STATUS: . NEW PATIENT PAIN DIARY TODAY'S VISIT 01/22/20 PATIENT DESCRIBES PAIN :ACHING, BURNING, HAVE IT ALL THE TIME, SHARP, STABBING, SORE, SHOOTING FROM 0-10, WHAT LEVEL IS YOUR PAIN TODAY?5 PRECIPITATING FACTORS WORKING, BEING IN ONE POSITION FOR TOO LONG, LAYING ON STOMAC ALLEVIATING FACTORS REST, TENS UNIT, HEAT, HYDROCODONE IMPACT ON FUNCTION LIMITS HIS ABILITY TO WORK PAIN CLINIC PFS, CLERGY, PUBLIC HEALTH REFERRALS PFS REFERRAL NEEDED?NO CLERGY REFERRAL NEEDED?NO PUBLIC HEALTH REFERRAL NEEDED?NO HAS THE PATIENT BEEN EDUCATED REGARDING HIS/HER PLAN OF CARE?YES HAS THE PATIENT BEEN EDUCATED REGARDING PAIN, THE RISK FOR PAIN, THE IMPORTANCE OF EFFECTIVE PAIN MANAGEMENT, AND THE PAIN ASSESSMENT PROCESS?YES ADVANCE DIRECTIVE ADVANCE DIRECTIVE DISCUSSED WITH PATIENT:YES 12/18/2019 PT IS GOING TO BRING IN HCP SO WE CAN WITNESS HIS SIGNATURE HOSPITALIZATION/MAJOR DIAGNOSTIC PROCEDURE SEE ABOVE REVIEW OF SYSTEMS REVIEWED BY: PROVIDER: FELSIA MIRANDA MACHINE PAN GREASER-Ashely . CONSTITUTIONAL: ANY CHANGE IN YOUR MEDICAL CONDITION? NO . CHILLS NO . FEVER NO . INFECTION: DO YOU HAVE NEW INFECTIONS? NO . DO YOU HAVE HISTORY OF MRSA? NO . MUSCULOSKELETAL: ANY NEW PATTERNS OF PAIN OR NUMBNESS? NO . GASTROENTEROLOGY: ANY NEW CHANGE IN BOWEL CONTROL? NO . GENITOURINARY: ANY NEW CHANGE IN BLADDER CONTROL? NO . IS THERE A CHANCE YOU COULD BE ? NO . HEMATOLOGY/LYMPH: DO YOU TAKE ANY BLOOD THINNERS? (FOR EXAMPLE- COUMADIN, PLAVIX, AGGRENOX, PLATEL, PRADAXA, OR XARELTO) NO . WHEN WAS YOUR LAST DOSE? DATE: TIME: . NEUROLOGY: HAVE YOU FALLEN IN THE PAST 12 MONTHS? NO . ANY NEW EXTREMITY NUMBNESS OR WEAKNESS? NO . CARDIOLOGY: DO YOU HAVE A PACEMAKER OR DEFIBRILLATOR? NO . RESPIRATORY: HAVE YOU BEEN SICK IN THE PAST WEEK? NO . FEVER NO . FLU LIKE SYMPTOMS? NO . COUGH NO . INTEGUMENTARY: DO YOU HAVE ANY RASHES OR OPEN SORES? NO . ALLERGIC/IMMUNO: ARE YOU ALLERGIC TO IV DYE? NO . ANY NEW ALLERGIES? NO . PSYCHIATRIC: DO YOU HAVE THOUGHTS OF HURTING YOURSELF OR SOMEONE ELSE? NO . ARE YOU ABUSED, NEGLECTED, OR IN AN UNSAFE ENVIRONMENT? NO . ENDOCRINOLOGY: ARE YOU DIABETIC? NO . OTHER: DO YOU NEED ANY PRESCRIPTIONS? NO . IF YES, PLEASE LIST: ____ . ANY NEW PROBLEMS WITH YOUR MEDICATIONS? NO . WHEN DID YOU LAST EAT? ____ . WHEN DID YOU LAST DRINK? ____ . WHAT DID YOU LAST DRINK? ____ . NAME OF PERSON DRIVING YOU HOME? ____ . DO YOU HAVE ANY OTHER QUESTIONS OR CONCERNS NO . EXAMINATION GENERAL EXAMINATION: PSYCHAPPROPRIATE MOOD AND AFFECT , ORIENTED X 3. ASSESSMENTS LUMBAR POST-LAMINECTOMY SYNDROME - M96.1 (PRIMARY) TREATMENT LUMBAR POST-LAMINECTOMY SYNDROME START BACLOFEN TABLET, 5 MG, 1 TABLET WITH FOOD OR MILK, ORALLY, THREE TIMES A DAY PRN, 30 DAYS, 90 CLINICAL NOTES: 44-YEAR-OLD MALE IN FOR CHRONIC PAIN FOLLOW-UP. GIVEN PRESENTING SYMPTOMS RECOMMEND ADDING BACLOFEN WITH FOLLOW-UP IN CLINIC IN ONE MONTH TO DISCUSS EFFICACY OF TREATMENT. PATIENT HAS EXPRESSED UNDERSTANDING OF AND WAS IN AGREEMENT WITH TREATMENT PLAN. GIVEN TIME TO ASK QUESTIONS AND EXPRESS CONCERNS. , ISTOP REGISTRY REVIEWED AND DEMONSTRATES COMPLLIANCE. (REF # [id number] ) BRINGS IN MEDICATIONS WHICH IS APPROPRIATE FOR WHAT WAS DISPENSED. RECENT URINE TOXICOLOGY REVIEWED. NO UNAUTHORIZED MEDICATIONS. NO ILLICIT SUBSTANCES AND PRESCRIBED MEDICATIONS WERE PRESENT. VISIT TO BE BILLED BASED ON TIME SPENT WITH PATIENT. TIME SPENT WITH PATIENT 11 MINUTES. OTHERS NOTES: NO VITAL SIGNS TAKEN, THIS IS A VIRTUAL/PHONE VISIT. DISPOSITION & COMMUNICATION FOLLOW UP 4 WEEKS (REASON: BACK PAIN ) ELECTRONICALLY SIGNED BY SHEKHAR HARO ON 01/26/2020 AT 08:24 AM EDT DISCLAIMER : THIS IS A VISIT SUMMARY EXTRACTED FROM THE [employer] CHART. IT IS NOT A COPY OF THE [employer] PROGRESS NOTE. JOSIAS
== END ==
LOC: M PAIN 09:30
PROVIDERS: ATTEND Family Medicine
DX: M96.1 Postlaminectomy syndrome, not elsewhere classified (principal); Z79.891 Long term (current) use of opiate analgesic; Z79.899 Other long term (current) drug therapy; Z91.030 Bee allergy status

== ENCOUNTER → 2020-02-23 | Outpatient (CLI) | payer OTHER ==
[2020-02-23 14:14] LABS: HEMATOCRIT 38.2 % (42.0-52.0); HEMOGLOBIN 13.2 g/dl (13.5-17.5); MEAN CORPUSCULAR HEMOGLOBIN 30.8 pg (27.0-33.0); MEAN CORPUSCULAR HGB CONC 34.6 g/dl (32.0-36.5); MEAN CORPUSCULAR VOLUME 89.3 fl (80.0-96.0); PLATELET COUNT, AUTOMATED 271 10^3/uL (150-450); RED BLOOD COUNT 4.28 10^6/uL (4.30-6.10)
--- NOTE | 2020-02-23 14:38 | REP ---
Clinical: Annual checkup . Comparison: 11/19/2002 . Technique: PA and lateral. Findings: The mediastinum and cardiac silhouette are normal. The lung carver are clear and without acute consolidation, effusion, or pneumothorax. The skeletal structures are intact and normal. Impression: 1. No acute cardiopulmonary process. Electronically Signed by Michael Carty MD 02/23/2020 02:30 P
[2020-02-23 14:40] LABS: HEMOGLOBIN A1c 5.9 %
[2020-02-23 14:57] LABS: ALBUMIN 3.8 GM/DL (3.2-5.2); ALT/SGPT 41 U/L (12-78); BILIRUBIN,TOTAL 0.2 MG/DL (0.2-1.0); BLOOD UREA NITROGEN 14 MG/DL (7-18); CALCIUM LEVEL 8.9 MG/DL (8.5-10.1); CARBON DIOXIDE LEVEL 28 MEQ/L (21-32); CHLORIDE LEVEL 104 MEQ/L (98-107); CHOLESTEROL LEVEL 168 MG/DL (<200); CREATININE FOR GFR 0.86 MG/DL (0.70-1.30); GLOMERULAR FILTRATION RATE > 60.0 (>60); GLUCOSE, FASTING 128 MG/DL (70-100); HDL CHOLESTEROL 52 MG/DL (>40); LDL CHOLESTEROL 74 MG/DL (<100); NON-HDL-C 116 MG/DL; POTASSIUM SERUM 3.7 MEQ/L (3.5-5.1); PROSTATIC SPECIFIC AG MONITOR 0.39 NG/ML (< 4.00); SODIUM LEVEL 139 MEQ/L (136-145); TESTOSTERONE 143 NG/DL (241-827); TOTAL 25(OH) VITAMIN D 30.9 NG/ML (30.0-100.0); TOTAL PROTEIN 6.9 GM/DL (6.4-8.2); TRIGLYCERIDES LEVEL 210 MG/DL (<150)
--- NOTE | 2020-02-24 06:44 | ECGEPIP ---
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
== END ==
LOC: M LAB 13:45
PROVIDERS: ATTEND Family Medicine
DX: R53.83 Other fatigue (principal); E03.9 Hypothyroidism, unspecified; E29.1 Testicular hypofunction

== ENCOUNTER → 2020-08-18 | Outpatient (CLI) | payer OTHER ==
[~2020-08-18] MED LIST changes: +PANT40TA29 PO; -PANT40TA3 PO
[2020-08-18 07:21] LABS: HEMATOCRIT 43.7 % (42.0-52.0); HEMOGLOBIN 14.4 g/dl (13.5-17.5); MEAN CORPUSCULAR HEMOGLOBIN 28.6 pg (27.0-33.0); MEAN CORPUSCULAR VOLUME 86.9 fl (80.0-96.0); PLATELET COUNT, AUTOMATED 299 10^3/uL (150-450); RED BLOOD COUNT 5.03 10^6/uL (4.30-6.10); WHITE BLOOD COUNT 5.6 10^3/uL (4.0-10.0)
[2020-08-18 07:51] LABS: ALT/SGPT 43 U/L (12-78); BILIRUBIN,TOTAL 0.3 MG/DL (0.2-1.0); BLOOD UREA NITROGEN 17 MG/DL (7-18); CALCIUM LEVEL 9.1 MG/DL (8.5-10.1); CARBON DIOXIDE LEVEL 30 MEQ/L (21-32); CHLORIDE LEVEL 104 MEQ/L (98-107); CHOLESTEROL LEVEL 181 MG/DL (<200); CHOLESTEROL RISK RATIO 2.873 (<5); CREATININE FOR GFR 0.91 MG/DL (0.70-1.30); GLOMERULAR FILTRATION RATE > 60.0 (>60); GLUCOSE, FASTING 106 MG/DL (70-100); HDL CHOLESTEROL 63 MG/DL (>40); LDL CHOLESTEROL 104 MG/DL (<100); NON-HDL-C 118 MG/DL; POTASSIUM SERUM 4.6 MEQ/L (3.5-5.1); SODIUM LEVEL 139 MEQ/L (136-145); TOTAL PROTEIN 7.3 GM/DL (6.4-8.2); TRIGLYCERIDES LEVEL 69 MG/DL (<150)
[2020-08-18 07:54] LABS: TESTOSTERONE 230 NG/DL (241-827)
[2020-08-18 09:11] LABS: HEMOGLOBIN A1c 5.7 %
== END ==
LOC: M LAB 06:31
PROVIDERS: ATTEND Family Medicine
DX: I10 Essential (primary) hypertension (principal)

== ENCOUNTER → 2020-10-15 | Outpatient (CLI) | payer OTHER | LOC: M LABSMTC 09:41 | PROVIDERS: ATTEND Plastic Surgery Surgery of the Hand | DX: Z20.822 Contact with and (suspected) exposure to COVID-19 (principal) ==

== ENCOUNTER → 2021-01-15 | Outpatient (CLI) | payer OTHER ==
--- NOTE | 2021-01-15 11:48 | REP ---
INDICATION: PAIN IN RIGHT SHOULER. COMPARISON: None. TECHNIQUE: Three views of the right shoulder were performed. FINDINGS: The acromioclavicular and glenohumeral relationships are within normal limits. There is no acute fracture or destructive osseous lesion. IMPRESSION: Within normal limits as described above. <Electronically signed by Nilesh Doe > 01/15/21 3629
== END ==
LOC: M RAD 11:16
PROVIDERS: ATTEND Family Medicine
DX: M25.511 Pain in right shoulder (principal)

== ENCOUNTER → 2022-02-23 | Outpatient (CLI) | payer OTHER ==
[2022-02-23 17:37] LABS: HEMATOCRIT 40.7 % (42.0-52.0); HEMOGLOBIN 13.9 g/dl (13.5-17.5); MEAN CORPUSCULAR HEMOGLOBIN 30.5 pg (27.0-33.0); MEAN CORPUSCULAR HGB CONC 34.2 g/dl (32.0-36.5); MEAN CORPUSCULAR VOLUME 89.5 fl (80.0-96.0); PLATELET COUNT, AUTOMATED 289 10^3/uL (150-450); RED BLOOD COUNT 4.55 10^6/uL (4.30-6.10); WHITE BLOOD COUNT 7.5 10^3/uL (4.0-10.0)
[2022-02-23 17:50] LABS: HEMOGLOBIN A1c 5.7 %
[2022-02-23 18:04] LABS: ALT/SGPT 41 U/L (12-78); BILIRUBIN,TOTAL 0.3 MG/DL (0.2-1.0); BLOOD UREA NITROGEN 17 MG/DL (7-18); CALCIUM LEVEL 8.9 MG/DL (8.5-10.1); CARBON DIOXIDE LEVEL 30 MEQ/L (21-32); CHLORIDE LEVEL 105 MEQ/L (98-107); CHOLESTEROL LEVEL 162 MG/DL (<200); CHOLESTEROL RISK RATIO 2.347 (<5); CREATININE FOR GFR 0.83 MG/DL (0.70-1.30); GLOMERULAR FILTRATION RATE > 60.0 (>60); GLUCOSE, FASTING 91 MG/DL (70-100); HDL CHOLESTEROL 69 MG/DL (>40); LDL CHOLESTEROL 82 MG/DL (<100); NON-HDL-C 93 MG/DL; POTASSIUM SERUM 4.2 MEQ/L (3.5-5.1); SODIUM LEVEL 139 MEQ/L (136-145); TESTOSTERONE 271 NG/DL (241-827); TOTAL PROTEIN 6.9 GM/DL (6.4-8.2); TRIGLYCERIDES LEVEL 57 MG/DL (<150)
== END ==
LOC: M LAB 16:29
PROVIDERS: ATTEND Family Medicine
DX: I10 Essential (primary) hypertension (principal); R53.83 Other fatigue; E03.9 Hypothyroidism, unspecified; E11.9 Type 2 diabetes mellitus without complications

== ENCOUNTER → 2024-02-27 | Outpatient (REF) | payer OTHER ==
[~2024-02-27] MED LIST changes: +FLUO-365 PO; -FLUO20CA22 PO
== END ==
LOC: M SFHCDERM 13:20
PROVIDERS: ATTEND Nurse Practitioner Family
DX: D36.17 Benign neoplasm of peripheral nerves and autonomic nervous system of trunk, unspecified (principal)